=== PATIENT | male | born 1995 | race American Indian/Alaskan Native ===

== ENCOUNTER 2017-09-06 21:35 | Inpatient (IN) | payer BC, OTHER ==
[2017-09-06] MEDS ORDERED: TDAP Vaccine 0.5 mL Syr IM ONE (22:04)
[2017-09-06] MEDS ORDERED: Sodium Chloride 0.9% 1,000 ML IV STA (22:04)
--- NOTE | 2017-09-06 22:09 | ED PDOC ---
Arrival/HPI - General Chief Complaint: Medical Clearance Time Seen by Provider: 09/06/17 21:54 Historian: Patient, Parent, EMS - History of Present Illness Narrative History of Present Illness (Text): 09/06/17 22:06 22 y/o male, no pmh, nkda, biba for syncope episode at a store x 2 hours. Pt. stated that he went to the store to get food for himself, last meal about 9 hours ago with a bowl of cereal, stated that he felt dizzy and syncoped on the floor which he was bring here with the ambulance, no head or neck pain, no back pain, no abdominal or chest pain, no palpitation, no rash, no night sweat, no dizziness, no change in vision, no other medical or psychological complaints. Past Medical History - Provider Review Nursing Documentation Reviewed: Yes - Past History Past History: No Previous - Infectious Disease Hx of Infectious Diseases: None - Psychiatric Hx Substance Use: No - Past Surgical History Past Surgical History: No Previous - Anesthesia Hx Anesthesia: No Family/Social History - Physician Review Nursing Documentation Reviewed: Yes Family/Social History: Unknown Family HX Smoking Status: Never Smoked Hx Alcohol Use: No Hx Substance Use: No Allergies/Home Meds Allergies/Adverse Reactions: Allergies No Known Allergies Allergy (Verified 12/22/12 21:27) Home Medications: Home Meds Medication Instructions Recorded Confirmed No Known Home Med 12/22/12 09/06/17 Review of Systems - Review of Systems Constitutional: absent: Fatigue, Fevers Eyes: absent: Vision Changes, Photophobia ENT: absent: Hearing Changes Respiratory: absent: SOB, Cough Cardiovascular: Syncope. absent: Chest Pain Gastrointestinal: absent: Abdominal Pain, Nausea, Vomiting Skin: absent: Rash, Pruritis Neurological: absent: Headache, Gait Changes, Facial Droop Psychiatric: absent: Anxiety, Depression Physical Exam Vital Signs Temp Pulse Resp BP Pulse Ox 09/07/17 03:11 99 H 20 141/70 99 09/07/17 02:12 111 H 30 H 149/100 H 94 L 09/07/17 01:00 87 18 145/71 100 09/06/17 23:35 80 18 158/72 H 100 09/06/17 21:35 98.2 F 84 18 135/65 100 Finger Stick Blood Glucose: 161 - Systems Exam Head: Present: Atraumatic, Normocephalic. No: Tenderness, Contusion, Swelling, Ecchymosis, Abrasion, Laceration, Other Pupils: Present: PERRL Extroacular Muscles: Present: EOMI Conjunctiva: Present: Normal Mouth: Present: Moist Mucous Membranes Nose (External): Present: Atraumatic. No: Abrasion, Contusion, Laceration, Lesions, Other Nose (Internal): Present: Normal Inspection, No Active Bleeding. No: Rhinorrhea , Septal Hematoma, Epistaxis Neck: Present: Normal Range of Motion, Lymphadenopathy. No: Meningeal Signs, MIDLINE TENDERNESS, Paraspinal Tenderness, Trachea Midline Respiratory/Chest: Present: Clear to Auscultation, Good Air Exchange. No: Respiratory Distress, Accessory Muscle Use Cardiovascular: Present: Regular Rate and Rhythm, Normal S1, S2. No: Murmurs Abdomen: Present: Normal Bowel Sounds. No: Tenderness, Distention, Peritoneal Signs Back: Present: Normal Inspection. No: CVA Tenderness, Midline Tenderness, Paraspinal Tenderness, Pain with Leg Raise, Decubitus Ulcer Upper Extremity: Present: Normal Inspection, Other (Lt. hand: visible dorsum abrasion approx. 2cm noted on the 2nd and 3rd MCPJ dorsum, no deformity, FROM without limitation, sensation intact, motor 5/5, +radial pulse, capillary refill < 2 seconds, neurovascular intact. ). No: Cyanosis, Edema Lower Extremity: Present: Normal Inspection. No: Edema Neurological: Present: GCS=15, CN II-XII Intact, Speech Normal, Motor Func Grossly Intact, Gait Normal, Memory Normal Skin: Present: Warm, Dry, Normal Color. No: Rashes Psychiatric: Present: Alert, Oriented x 3, Normal Insight, Normal Concentration Medical Decision Making ED Course and Treatment: 09/06/17 22:11 -labs/ua/uds/cardiac enzyme/drug screen -ekg -CT head -cxr -IVF -electronic device monitor -tdap -wound irrigated with normal saline, clean with betadine, bacitracin and gauze dressing -Observe and reassess 09/07/17 01:43 -EKG: NSR @ 84 BPM, no ST elevation or depression, no T wave inversion. -CT head results reviewed with no acute intracranial process. I explained the entire result with the patient and advised outpatient MRI follow up. -Chest xray no active diasease -Lt. hand xray show no acute fracture/dislocation -Labs show no acute findings except dimer is about 4000s which he has no extremity pain, will need to rule out PE as it may be cause of the syncope. -CTA show no obvious PE but can not be ensure of the peripheral PE, limited study, clinical concerning for elevation Dimer is very concerning, discussed with the family and Dr. Viveros, agreed to admit the patient for observation tele unit with lovenox 1mg/kg for the patient and V/Q scan tomorrow. -Pt. refused rectal examination and stated that he has no black stool or abdominal pain. -Case discussed with Dr. Viveros and he request me to put in the admission. -Case discussed with Dr. Davidson as the patient stated that he has no PMD, discussed about the labs/radiology study and treatment plan, she request DR. Salguero for routine consult. 09/07/17 02:10 -Pt. just had a seizure episode on the bed side, tonic clonic with no incontinence, evaluated by Dr. Viveros, ativan 2mg and keppra 1000mg ordered as this is new on set. 09/07/17 02:19 -I spoke to DR. Davidson, discussed about the updated situation and request Dr. Amilcar Jaramillo on this case as well for routine consult. -Seizure precaution and aspiration precaution ordered. - Lab Interpretations Microbiology Results: Microbiology Results 09/07/17 01:18 Urine Urine Culture - Preliminary Gram Positive Cocci Lab Results: 09/06/17 22:29 09/06/17 22:29 Lab Results 09/07/17 07:47: POC Glucose (mg/dL) 90 09/07/17 01:18: Urine Color Yellow, Urine Appearance Clear, Urine pH 7.0, Ur Specific [place] 1.010, Urine Protein Negative, Urine Glucose (UA) Negative, Urine Ketones Trace H, Urine Blood Negative, Urine Nitrate Negative, Urine Bilirubin Negative, Urine Urobilinogen 0.2, Ur Leukocyte Esterase Negative 09/07/17 01:18: Urine Opiates Screen Negative, Urine Methadone Screen Negative, Ur Barbiturates Screen Negative, Ur Phencyclidine Scrn Negative, Ur Amphetamines Screen Negative, U Benzodiazepines Scrn Negative, U Oth Cocaine Metabols Negative, U Cannabinoids Screen Negative 09/07/17 00:25: PT 13.8 H, INR 1.21 H, APTT 32.7 09/07/17 00:25: D-Dimer, Quantitative 5159 H 09/06/17 22:53: D-Dimer, Quantitative 4215 H 09/06/17 22:29: Influenza Typ A,B (EIA) Negative for flu a/b 09/06/17 22:29: Alcohol, Quantitative < 10 09/06/17 22:29: Salicylates < 1 L, Acetaminophen < 10.0 L 09/06/17 22:29: Sodium 144, Potassium 3.9, Chloride 105, Carbon Dioxide 26, Anion Gap 17, BUN 13, Creatinine 0.9, Est GFR ( Amer) > 60, Est GFR (Non- Af Amer) > 60, Random Glucose 104, Calcium 9.9, Magnesium 2.1, Total Bilirubin 0.8, AST 44, ALT 32, Alkaline Phosphatase 72, Lactate Dehydrogenase 579, Total Creatine Kinase 504 H, CK-MB (CK-2) 2.3, CK-MB (CK-2) % Cancelled, Troponin I < 0.01, Total Protein 8.0, Albumin 4.5, Globulin 3.5, Albumin/Globulin Ratio 1.3 09/06/17 22:29: WBC 5.6, RBC 4.63, Hgb 13.8 L, Hct 40.9 L, MCV 88.3, MCH 29.8, MCHC 33.7, RDW 12.7, Plt Count 198, MPV 9.6, Gran % 56.6, Lymph % (Auto) 34.0, [place] % (Auto) 6.2 H, Eos % (Auto) 3.0, Baso % (Auto) 0.2, Gran # 3.19, Lymph # ( Auto) 1.9, [place] # (Auto) 0.4, Eos # (Auto) 0.2, Baso # (Auto) 0.01 09/06/17 22:20: POC Glucose (mg/dL) 97 - RAD Interpretation Radiology Orders: 09/06/17 22:04 HEAD W/O CONTRAST [CT] Stat CHEST PORTABLE [RAD] Stat HAND LEFT 3 VIEWS ROUTINE [RAD] Stat 09/06/17 23:55 ANGIO CHEST PE PROTOCOL [CT] Stat 09/07/17 09:27 BRAIN W & WO CONTRAST [MRI] Stat 09/07/17 09:45 HUMERUS LEFT [RAD] Stat HUMERUS RIGHT [RAD] Stat SHOULDER LEFT [RAD] Stat SHOULDER RIGHT [RAD] Stat 09/07/17 16:27 EXT UPPER W/O CONTRAST LEFT [CT] Stat Chest xray: no active disease Lt. hand xray: normal left hand radiograph CT Head: FINDINGS: Brain: The white-peterson differentiation is preserved demonstrating no acute territorial type infarct. No acute intracranial hemorrhage is seen. There is a small focus of hypodensity within the superior right frontal white matter, which is nonspecific in a patient this age. When correlated with the reconstructed images, this is suggestive of artifact. Midline shift: There is no midline shift. Ventricles: No ventriculomegaly. Bones/joints: The calvarium demonstrates no evidence for a depressed fracture. Soft tissues: No acute abnormality. Sinuses: Unremarkable as visualized. No acute sinusitis. Mastoid air cells: No mastoid effusion. IMPRESSION: 1. No acute intracranial abnormality. 2. Additional findings described above. Thank you for allowing us to participate in the care of your patient. Dictated and Authenticated by: Teofilo Gregg MD 09/07/2017 1:13 AM Eastern Time ([place] & [place]) CTA: Business Office Coordinator: Radiologist - EKG Interpretation EKG Interpretation (Text): 09/06/17 22:49 -EKG: NSR @ 84 BPM, no ST elevation or depression, no T wave inversion. Interpreted by ED Physician: Yes Type: 12 lead EKG - Medication Orders Current Medication Orders: Acetaminophen (Tylenol 325mg Tab) 650 mg PO Q6H PRN PRN Reason: Pain, Mild (1-3) Last Admin: 09/07/17 16:49 Dose: 650 mg MAR Pain/Vitals Document 09/07/17 16:49 DH (Rec: 09/07/17 16:50 DH [id number]) Presence of Pain Presence of Pain Yes Famotidine (Pepcid) 40 mg PO HS [facility] Last Admin: 09/07/17 21:43 Dose: 40 mg Hydromorphone HCl (Dilaudid) 0.5 mg IVP Q4H PRN PRN Reason: Pain, Mild (1-3) Sodium Chloride (Sodium Chloride 0.9%) 1,000 mls @ 100 mls/hr IV .Q10H [facility] Last Admin: 09/08/17 05:50 Dose: 100 mls/hr eMAR Start Stop Document 09/08/17 05:50 ZARAL (Rec: 09/08/17 05:51 ZARAL [id number]) Intravenous Solution Start Date 09/08/17 Start Time 05:50 Levetiracetam (Keppra 500mg Ivpb) 500 mg in 100 mls @ 400 mls/hr IVPB Q12 [facility] Last Admin: 09/08/17 09:52 Dose: 400 mls/hr eMAR Start Stop Document 09/08/17 09:52 RICHARD (Rec: 09/08/17 09:52 RICHARD [id number]) Intravenous Solution Start Date 09/08/17 Start Time 09:52 End Date 09/08/17 End time 10:10 Total Infusion Time 18 Lidocaine (Lidoderm) 1 ea TD DAILY [facility] Last Admin: 09/08/17 09:53 Dose: 1 ea MAR Transdermal Patch Site Document 09/08/17 09:53 RICHARD (Rec: 09/08/17 09:53 RICHARD [id number]) Transdermal Patch Site Transdermal Patch Site Left Shoulder Lorazepam (Ativan) 1 mg IVP Q4H PRN; Protocol PRN Reason: Seizure activity Oxycodone/Acetaminophen (Percocet 5/325 Mg Tab) 1 tab PO Q6H PRN PRN Reason: Pain, moderate (4-7) Stop: 09/10/17 18:24 Last Admin: 09/08/17 09:50 Dose: 1 tab [facility] Pain Assessment Document 09/08/17 09:50 [facility] (Rec: 09/08/17 09:51 [id number] Pain Reassessment Is this a pain reassessment? No Sleep Is patient sleeping during reassessment? No Presence of Pain Presence of Pain Yes Pain Scale Used Pain Scale Used Numeric Location Pain Location Body Site Generalized Description Description Intermittent Intensity of Pain at present 6 Re-Assess: [facility] Pain Assessment Document 09/08/17 10:50 [facility] (Rec: 09/08/17 14:05 [id number] Pain Reassessment Is this a pain reassessment? Yes Sleep Is patient sleeping during reassessment? No Presence of Pain Presence of Pain No Discontinued Medications Acetaminophen (Tylenol 325mg Tab) 650 mg PO STAT STA Stop: 09/07/17 03:51 Last Admin: 09/07/17 04:10 Dose: 650 mg [facility] Pain/Vitals Document 09/07/17 04:10 MS (Rec: 09/07/17 04:[address] [facility] [id number]) Pain Reassessment Is This A Pain ReAssessment? No Presence of Pain Presence of Pain Yes Pain Scale Used Pain Scale Used Numeric Location Pain Location Body Day Care Worker Description Pressure Intensity 4 Scale Used Numeric Alleviating Factors Medication Re-Assess: [facility] Pain/Vitals Document 09/07/17 05:10 MS (Rec: 09/07/17 05:[address] [facility] [id number]) Pain Reassessment Is This A Pain ReAssessment? Yes Sleep Is patient sleeping during reassessment? Yes Enoxaparin Sodium (Lovenox) 70 mg SC STAT STA PRN Reason: Protocol Stop: 09/07/17 01:43 Last Admin: 09/07/17 02:17 Dose: 70 mg Subcutaneous Administrations Document 09/07/17 02:17 JOL (Rec: 09/07/17 02:17 JOL [id number]) Charges for Administration # of Subcutaneous Administrations 1 Sodium Chloride (Sodium Chloride 0.9%) 1,000 mls @ 999 mls/hr IV .Q1H1M STA Stop: 09/06/17 23:04 Last Admin: 09/06/17 22:31 Dose: 999 mls/hr eMAR Start Stop Document 09/06/17 22:31 JOL (Rec: 09/06/17 22:32 JOL [id number]) Intravenous Solution Start Date 09/06/17 Start Time 22:32 End Date 09/06/17 End time 23:33 Total Infusion Time 61 Levetiracetam 1,000 mg/ Sodium (Chloride) 110 mls @ 440 mls/hr IV ONCE ONE Stop: 09/07/17 02:23 Last Admin: 09/07/17 02:25 Dose: 440 mls/hr eMAR Start Stop Document 09/07/17 02:25 JOL (Rec: 09/07/17 02:25 JOL [id number]) Intravenous Solution Start Date 09/07/17 Start Time 02:25 End Date 09/07/17 End time 02:40 Total Infusion Time 15 Lorazepam (Ativan) 2 mg IM ONCE ONE PRN Reason: Protocol Stop: 09/07/17 02:10 Last Admin: 09/07/17 02:10 Dose: 2 mg IM Administration Charges Document 09/07/17 02:10 JOL (Rec: 09/07/17 02:26 JOL [id number]) Charges for Administration # of IM Administrations 1 Lorazepam (Ativan) 2 mg IVP ONCE PRN; Protocol PRN Reason: Seizure activity Stop: 09/07/17 23:59 Last Admin: 09/07/17 09:50 Dose: 2 mg IVP Administration Document 09/07/17 09:50 (Rec: 09/07/17 09:50 [email or web address]) Charges for Administration # of IVP Administrations 1 Behavioural Document 09/07/17 09:50 DH (Rec: 09/07/17 09:50 [email or web address]) Maintenance Maintenance Dose Yes Re-Assess: Reassess Psych Meds Document 09/07/17 10:20 DH (Rec: 09/07/17 14:39 DH [email or web address]) Reassess Psych Med Effective Tetanus/Reduced Diphtheria/Acell Pertussis (Boostrix Vaccine Inj) 0.5 ml IM .ONCE ONE Stop: 09/06/17 22:05 Last Admin: 09/06/17 22:30 Dose: 0.5 ml Immunization Registry Document 09/06/17 22:30 JOL (Rec: 09/06/17 22:31 JOL [id number]) Immunization Registry Consent Date 06/10/17 - PA / [employer] / Resident Statement MD/DO has reviewed & agrees with the documentation as recorded. Disposition/Present on Arrival - Present on Arrival Any Indicators Present on Arrival: No History of DVT/PE: No History of Uncontrolled Diabetes: No Urinary Catheter: No History of Decub. Ulcer: No History Surgical Site Infection Following: None - Disposition Have Diagnosis and Disposition been Completed?: Yes Diagnosis: Syncope, Elevated d-dimer, Seizure Disposition: HOSPITALIZED Disposition Time: 01:45 Patient Plan: Admission, Telemetry Patient Problems: Current Active Problems Problem Status Onset Syncope Acute Elevated d-dimer Acute Seizure Acute Condition: STABLE
[2017-09-06 22:41] LABS: BASO # 0.01 K/mm3 (0.0-2.0); BASO % 0.2 % (0.0-3.0); EOS # 0.2 (0.0-0.7); GRAN # 3.19 (1.4-6.5); GRAN % 56.6 % (50.0-68.0); HEMOGLOBIN 13.8 g/dL (14.0-18.0); LYMPH # 1.9 (1.2-3.4); MEAN CELL VOLUME 88.3 fl (80.0-105.0); MEAN CORPUSCULAR HEMOGLOBIN 29.8 pg (25.0-35.0); MEAN CORPUSCULAR HGB CONC 33.7 g/dl (31.0-37.0); MEAN PLATELET VOLUME 9.6 fl (7.0-11.0); MONO # 0.4 (0.1-0.6); MONO % 6.2 % (1.0-6.0); RBC 4.63 10^6/uL (3.5-6.1); RED CELL DISTRIBUTION WIDTH 12.7 % (11.5-14.5); WHITE BLOOD COUNT 5.6 10^3/ul (4.5-11.0)
[2017-09-06 22:43] LABS: ACETAMINOPHEN < 10.0 ug/ml (10.0-20.0); SALICYLATE < 1 mg/dL (2.0-20.0)
[2017-09-06 22:46] LABS: ALB/GLOB RATIO 1.3 (1.1-1.8); ALBUMIN 4.5 g/dL (3.0-4.8); ALT/SGPT 32 U/L (7-56); AST/SGOT 44 U/L (17-59); BLOOD UREA NITROGEN 13 mg/dL (7-21); CALCIUM 9.9 mg/dL (8.4-10.5); GFR AFRICAN-AMERICAN > 60; GFR NON-AFRICAN AMERICAN > 60; MAGNESIUM 2.1 mg/dL (1.7-2.2)
[2017-09-06 22:55] LABS: TROPONIN I < 0.01 ng/mL
[2017-09-06 23:00] LABS: CK-MB 2.3 ng/mL (0.0-3.6)
[2017-09-07] MEDS ORDERED: Iohexol 240 (50 ml) ONE (00:05)
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
--- NOTE | 2017-09-07 01:26 | CT ---
EXAM: CT Angiography Chest With Intravenous Contrast EXAM DATE/TIME: 09/06/2017 11:55 PM CLINICAL HISTORY: The patient age is 22 years old and is male; Abnormal findings; Abnormal diagnostic tests; Elevated d-dimer; Additional info: Elevated dimer, syncope, R/O pe Facility exam id and description: Ct [facility] angio chest pe protocol TECHNIQUE: Axial computed tomographic angiography images of the chest with intravenous contrast using pulmonary embolism protocol. All CT scans at this facility use one or more dose reduction techniques, viz.: automated exposure control; ma/kV adjustment per patient size (including targeted exams where dose is matched to indication; i.e. head); or iterative reconstruction technique. MIP reconstructed images were created and reviewed. Coronal and sagittal reformatted images were created and reviewed. CONTRAST: 96 mL of VISI 320 administered intravenously. COMPARISON: No relevant prior studies available. FINDINGS: Pulmonary arteries: There is no acute central pulmonary embolism within the pulmonary trunk or main pulmonary arteries. Artifact limits evaluation for pulmonary embolism within the proximal lobar and segmental branches within the right lung and additional segmental branches in the left lung. Aorta: No acute findings. No thoracic aortic aneurysm. Lungs: No lung mass or dominant lung nodule is visualized. There is no confluent infiltrate. Pleural space: No significant effusion. No pneumothorax. Heart: No cardiomegaly. No significant pericardial effusion. No evidence of RV dysfunction. Mediastinum: There is soft tissue within the anterior mediastinum, compatible with thymic tissue. Bones/joints: No acute fracture. No dislocation. Soft tissues: There is mild bilateral gynecomastia. Lymph nodes: No enlarged lymph nodes. Kidneys and ureters: Right renal pelviectasis is visualized. IMPRESSION: 1. There is no acute central pulmonary embolism. Artifact limits evaluation for pulmonary embolism within the proximal lobar and segmental branches within the right lung and additional segmental branches in the left lung. 2. There is no confluent infiltrate. 3. Right renal pelviectasis is visualized. 4. Additional CT findings described above.
[2017-09-07] MEDS ORDERED: Enoxaparin 80 mg Syringe SC STA (01:42)
[2017-09-07 01:48] LABS: URINE BILIRUBIN NEGATIVE (NEGATIVE); URINE BLOOD NEGATIVE (NEGATIVE); URINE GLUCOSE (UA) NEGATIVE (NEGATIVE); URINE LEUKOCYTE ESTERASE NEGATIVE Leu/uL (NEGATIVE); URINE NITRATE NEGATIVE (NEGATIVE); URINE PROTEIN NEGATIVE mg/dL (<30 mg/dL); URINE UROBILINOGEN 0.2 E.U./dL (<1 E.U./dL)
[2017-09-07 01:59] LABS: URINE APPEARANCE CLEAR (CLEAR); URINE COLOR YELLOW (YELLOW)
[2017-09-07 02:05] LABS: INR 1.21 (0.93-1.08); PARTIAL THROMBOPLASTIN TIME 32.7 Seconds (25.1-36.5); PROTHROMBIN TIME 13.8 SECONDS (9.4-12.5)
[2017-09-07 02:08] LABS: BARBITURATES, UR NEGATIVE (NEGATIVE); BENZODIAZEPINES, UR NEGATIVE (NEGATIVE); OPIATES, UR NEGATIVE (NEGATIVE); PHENCYCLIDINE, UR NEGATIVE (NEGATIVE)
[2017-09-07] MEDS ORDERED: levETIRAcetam 1,000 MG in Sodium Chloride 0.9% 100 ML IV ONE (02:09)
[2017-09-07] MEDS: Sodium Chloride 0.9% 1,000 ML IV SCH ×2 (02:17→14:40)
[2017-09-07 04:07] VITALS: BMI 23.2
[2017-09-07] MEDS: levETIRAcetam 500mg IVPB 500 MG/100 ML BAG IVPB SCH ×2 (09:40→21:01)
--- NOTE | 2017-09-07 10:26 | CP.PCM.CON ---
<Mihaela Martino - Last Filed: 09/07/17 10:45> History of Present Illness - History of Present Illness History of Present Illness: PGY-[address] Gomez Neurology consult: Seizure Mr Romeo Crawford, 22M, had 2 seizure episodes: 1 unwitnessed happened at a store; 1 witnessed in the ED. Pt stated that he went to the store to get food for himself, last meal about 9 hours ago with a bowl of cereal, collapsed on the floor with no prior dizziness, aura, tinnitus. The 2nd episode was witnessed in the ED. Pt's eyes rolled back with muscle shaking of extremities. After given ativan, pt was postictal for 15 minutes. ROS - (+) eat 1 meal a day for some days or a week. (+) Sleep from 8pm to 2am and cannot fall asleep. (+) shoulder pain b/1. No stress. Denies recent sickness, childhood trauma/recent trauma/head injury no head or neck pain, no back pain, no abdominal or chest pain, no palpitation, no rash, no night sweat, no dizziness, no change in vision, no other medical or psychological complaints. PMH: None PSH: None FH: Father has seizure after head injury in teenagers. Paternal uncle has seizure when he was young SH: Live with dad. 1-2 cigarettes a day. Last smoke marijuana 2 weeks ago. Denies drink/drug All: NKDA Med: none Past Patient History - Infectious Disease Hx of Infectious Diseases: None - Past Social History Smoking Status: Current Some Days Smoker - CARDIAC Hx Cardiac Disorders: No - PULMONARY Hx Respiratory Disorders: No - NEUROLOGICAL Hx Neurological Disorder: No - HEENT Hx HEENT Problems: No - ENDOCRINE/METABOLIC Hx Endocrine Disorders: No - HEMATOLOGICAL/ONCOLOGICAL Hx Blood Disorders: No - INTEGUMENTARY Hx Dermatological Problems: No - MUSCULOSKELETAL/RHEUMATOLOGICAL Hx Musculoskeletal Disorders: No Hx Falls: Yes - GASTROINTESTINAL Hx Gastrointestinal Disorders: No - GENITOURINARY/GYNECOLOGICAL Hx Genitourinary Disorders: No - PSYCHIATRIC Hx Psychophysiologic Disorder: No Hx Substance Use: No - SURGICAL HISTORY Hx Surgeries: No - ANESTHESIA Hx Anesthesia: No Meds Allergies/Adverse Reactions: Allergies Allergy/AdvReac Type Severity Reaction Status Date / Time No Known Allergies Allergy Verified 12/22/12 21:27 - Medications Medications: Current Medications Acetaminophen (Tylenol 325mg Tab) 650 mg PO Q6H PRN PRN Reason: Pain, Mild (1-3) Last Admin: 09/07/17 09:50 Dose: 650 mg Sodium Chloride (Sodium Chloride 0.9%) 1,000 mls @ 100 mls/hr IV .Q10H ZACK Last Admin: 09/07/17 02:17 Dose: 100 mls/hr Levetiracetam (Keppra 500mg Ivpb) 500 mg in 100 mls @ 400 mls/hr IVPB Q12 ZACK Last Admin: 09/07/17 09:40 Dose: 400 mls/hr Lorazepam (Ativan) 2 mg IVP ONCE PRN; Protocol PRN Reason: Seizure activity Stop: 09/07/17 23:59 Last Admin: 09/07/17 09:50 Dose: 2 mg Lorazepam (Ativan) 1 mg IVP Q4H PRN; Protocol PRN Reason: Seizure activity Physical Exam - Constitutional Appears: No Acute Distress - Head Exam Head Exam: ATRAUMATIC, NORMAL INSPECTION, NORMOCEPHALIC Additional comments: R lower Lip biting injury - Eye Exam Eye Exam: EOMI, Normal appearance, PERRL Pupil Exam: NORMAL ACCOMODATION - ENT Exam ENT Exam: Mucous Membranes Moist - Neck Exam Additional comments: supple - Respiratory Exam Respiratory Exam: Clear to Auscultation Bilateral, NORMAL BREATHING PATTERN. absent: Rales, Rhonchi, Wheezes - Cardiovascular Exam Cardiovascular Exam: REGULAR RHYTHM, +S1, +S2 - GI/Abdominal Exam GI & Abdominal Exam: Normal Bowel Sounds, Soft. absent: Tenderness - Extremities Exam Extremities exam: Positive for: pedal pulses present. Negative for: calf tenderness Additional comments: Upper extremiteis range of motion limited by pain. Most tenderness at proximal humerus areas b/l - Neurological Exam Neurological exam: Alert, CN II-XII Intact, Oriented x3, Reflexes Normal Additional comments: Speech: No aphasia Recall: 2/3 Motor: Upper extremiteis range of motion limited by pain. Good hand cell maker. LE 5/ 5 b/l Sensory: intact [id number] coordination: intact rapid alternating movement: intact - Psychiatric Exam Psychiatric exam: Normal Affect, Normal Mood - Skin Skin Exam: Warm (clammy) Results - Vital Signs Recent Vital Signs: Last Vital Signs Temp 98.9 F 09/07/17 06:00 Pulse 89 02/08/18 06:00 Resp 20 09/07/17 06:00 BP 134/98 H 09/07/17 06:00 Pulse Ox 97 09/07/17 06:00 - Labs Result Diagrams: 09/06/17 22:29 09/06/17 22:29 Labs: Laboratory Results - last 24 hr 09/07/17 07:47 POC Glucose (mg/dL) 90 Assessment & Plan - Assessment and Plan (Free Text) Plan: Mr Romeo Crawford, 22M, had 2 seizure episodes: 1 unwitnessed happened at a store; 1 witnessed in the ED - tonic clonic in nature. ROS is significant for (+) irregular eating habit with skipped meals, (+) poor sleep hygiene with sleep depravation, and (+) shoulder pain b/l after seizures. UDS and blood alcohol level is negative. CK is elevated at 500. EKG showed NSR @ 84 BPM, no ST elevation or depression, no T wave inversion. CT head showed no acute intracranial process. There is a small focus of hypodensity within the superior right frontal white matter. Seizure likely triggered by sleep deprivation compound with irregular and skipped meals - Keppra 500 BID - MRI w/w/o contrast of brain with NS @ 100 - EEG - seizure precaution - Ativan 1q4 PRN for seizure shoulder pain b/l after seizures - tylenol PRN for pain - ___Pending___shoulder and humerus x-ray b/l to r/o fracture s/r/d/w Dr. Gomez <Chaz Gomez - Last Filed: 09/07/17 11:43> Meds - Medications Medications: Current Medications Acetaminophen (Tylenol 325mg Tab) 650 mg PO Q6H PRN PRN Reason: Pain, Mild (1-3) Last Admin: 09/07/17 09:50 Dose: 650 mg Sodium Chloride (Sodium Chloride 0.9%) 1,000 mls @ 100 mls/hr IV .Q10H ZACK Last Admin: 09/07/17 02:17 Dose: 100 mls/hr Levetiracetam (Keppra 500mg Ivpb) 500 mg in 100 mls @ 400 mls/hr IVPB Q12 ZACK Last Admin: 09/07/17 09:40 Dose: 400 mls/hr Lorazepam (Ativan) 2 mg IVP ONCE PRN; Protocol PRN Reason: Seizure activity Stop: 09/07/17 23:59 Last Admin: 09/07/17 09:50 Dose: 2 mg Lorazepam (Ativan) 1 mg IVP Q4H PRN; Protocol PRN Reason: Seizure activity Results - Vital Signs Recent Vital Signs: Last Vital Signs Temp 98.9 F 09/07/17 06:00 Pulse 89 09/07/17 06:00 Resp 20 09/07/17 06:00 BP 134/98 H 09/07/17 06:00 Pulse Ox 97 09/07/17 06:00 - Labs Result Diagrams: 09/06/17 22:29 09/06/17 22:29 Labs: Laboratory Results - last 24 hr 09/07/17 07:47 POC Glucose (mg/dL) 90 Attending/Attestation - Attestation I have personally seen and examined this patient.: Yes I have fully participated in the care of the patient.: Yes I have reviewed all pertinent clinical information: Yes
[2017-09-07] MEDS ORDERED: Gadodiamide 287 MG/ML VIAL (15ML) IV ONE (11:16)
--- NOTE | 2017-09-07 12:50 | MRI ---
PROCEDURE: MRI BRAIN WITH AND WITHOUT CONTRAST HISTORY: Seizure COMPARISON: None. TECHNIQUE: Multiplanar, multisequence MR images of the brain were obtained with and without intravenous contrast enhancement. 15 cc of Omniscan There is some motion artifact on several of the pulse sequences. FINDINGS: HEMORRHAGE: None DWI: No evidence of an acute or early subacute infarction. BRAIN PARENCHYMA: No mass,mass effect or edema. No atrophy or chronic microvascular ischemic changes. ENHANCEMENT: No abnormal intracranial enhancement. VENTRICLES: Unremarkable. No hydrocephalus. CRANIUM: Unremarkable. ORBITS: Grossly unremarkable. PARANASAL SINUSES/MASTOIDS: Clear VASCULAR SYSTEM: Skull base flow voids intact. OTHER FINDINGS: None . IMPRESSION: Unremarkable pre and post contrast enhanced MRI of the brain.
--- NOTE | 2017-09-07 14:19 | RAD ---
HISTORY: medical clearance COMPARISON: No prior. FINDINGS: LUNGS: No active pulmonary disease. PLEURA: No significant pleural effusion identified, no pneumothorax apparent. CARDIOVASCULAR: Normal. OSSEOUS STRUCTURES: No significant abnormalities. VISUALIZED UPPER ABDOMEN: Normal. OTHER FINDINGS: None. IMPRESSION: No active disease.
--- NOTE | 2017-09-07 14:46 | RAD ---
PROCEDURE: Left Hand Radiographs. HISTORY: lt. hand dorsum abrasion COMPARISON: None. FINDINGS: BONES: Normal. No fracture. JOINTS: Normal. No osteoarthritic changes. SOFT TISSUES: Normal. OTHER FINDINGS: None. IMPRESSION: Normal left hand radiographs.
[2017-09-07] MEDS: Lidocaine 5% Patch TD SCH (15:23)
--- NOTE | 2017-09-07 15:26 | RAD ---
PROCEDURE: Radiographs of the left humerus. HISTORY: pain COMPARISON: None. FINDINGS: BONES: There is a displaced fracture involving the lateral aspect of the humeral head in the region of the greater tuberosity. The articular surface is intact. The humeral neck is intact SOFT TISSUES: Normal. OTHER FINDINGS: None. IMPRESSION: There is a displaced fracture involving the lateral aspect of the humeral head in the region of the greater tuberosity. The articular surface is intact. The humeral neck is intact
--- NOTE | 2017-09-07 15:27 | RAD ---
PROCEDURE: Radiographs of the Right Shoulder HISTORY: pain COMPARISON: No prior. FINDINGS: BONES: Normal. No fracture. JOINTS: Normal. Glenohumeral and acromioclavicular joints preserved. No osteoarthritis. SOFT TISSUES: Normal. OTHER FINDINGS: None. IMPRESSION: Normal radiographs of the right shoulder.
--- NOTE | 2017-09-07 15:27 | RAD ---
PROCEDURE: Radiographs of the Left Shoulder HISTORY: pain COMPARISON: No prior. FINDINGS: BONES: There is a displaced fracture involving the lateral aspect of the humeral head in the region of the greater tuberosity. The articular surface is intact. The humeral neck is intact JOINTS: Normal. Glenohumeral and acromioclavicular joints preserved. No osteoarthritis. SOFT TISSUES: Normal. OTHER FINDINGS: None. IMPRESSION: There is a displaced fracture involving the lateral aspect of the humeral head in the region of the greater tuberosity. The articular surface is intact. The humeral neck is intact
--- NOTE | 2017-09-07 15:29 | RAD ---
PROCEDURE: Radiographs of the right humerus. HISTORY: pain COMPARISON: None. FINDINGS: BONES: Normal. No fracture or focal lesion. SOFT TISSUES: Normal. OTHER FINDINGS: None. IMPRESSION: Normal radiographs of right humerus.
--- NOTE | 2017-09-07 18:12 | CARD ---
APPROVED REPORT EKG Measurement Heart [id number] <Conclusion> Normal sinus rhythm Normal ECG
[2017-09-07] MEDS: Oxycodone/Acetaminophen 5/325 mg Tab PO PRN (18:35)
--- NOTE | 2017-09-07 18:56 | CT ---
PROCEDURE: Left upper extremity CT scan HISTORY: left proximal humerus/shoulder fracture COMPARISON: September 07, 2017. Left shoulder radiographs TECHNIQUE: 2.5 mm axial acquisition and display. Coronal and sagittal reconstructions. Dose report (mGy-cm): FINDINGS: Comminuted fracture at the junction of the right humeral head and neck with avulsion of the greater tuberosity Preservation of the glenohumeral relationship. Unremarkable acromioclavicular joint. No abnormalities of the adjacent scapula, visualized ribs or clavicle. Large hematoma of encompassing deltoid and teres major muscles. Sub scapularis and infraspinatus muscles are also affected. Pectoralis muscle hematoma noted. The large hematoma extends into the axillary region and chest. Muscles are also affected. No underlying pulmonary abnormalities. No evidence of rib fracture identified. IMPRESSION: Comminuted fracture proximal left humerus including the neck of the humerus with avulsion of greater tuberosity. Large hematoma affecting multiple muscle groups, axilla and left chest wall.
[2017-09-07] MEDS ORDERED: HYDROmorphone 0.5 mg/0.5 ml ISec IVP PRN (21:05)
[2017-09-08] MEDS: Oxycodone/Acetaminophen 5/325 mg Tab PO PRN ×3 (01:38→19:51)
--- NOTE | 2017-09-08 03:35 | CON ---
DATE: 09/07/2017 REASON FOR CONSULTATION: Left shoulder fracture. HISTORY OF PRESENT ILLNESS: This is a 22-year-old gentleman, who was admitted earlier today with complaints of left shoulder pain. The patient sustained a seizure and subsequently fell. The patient does not have recollection of the episode. He states that he woke up in the emergency room. He says now he has pain with range of motion in the left shoulder. He denies any numbness or tingling in the upper extremities. On examination of the left shoulder, he has some mild swelling about the left shoulder. He has some tenderness along the lateral aspect of the proximal humerus and has pain with passive range of motion of the shoulder. He does have no gross crepitus around the humerus or the elbow. There is obvious elbow swelling. He is able to flex and extend the elbow with a little bit of pain at the shoulder. He is grossly stable at the elbow. He has no forearm or wrist tenderness. He is able to move his wrist and his hand without pain. Neurovascularly, he is grossly intact. X-rays of the left shoulder looks like a displaced left greater tuberosity fracture. No obvious dislocation is appreciated. IMPRESSION: Left proximal humerus fracture. PLAN: At this point, I recommend that we get a CAT to further evaluate the displacement of the fracture fragments. I did explain to him and his father that ultimately surgery may be warranted for this and may understand this as well. We will follow up with his admitting doctors to see what his current treatment for his new onset seizures will be. Franklin Moncada MD
[2017-09-08] MEDS: Sodium Chloride 0.9% 1,000 ML IV SCH (05:50)
--- NOTE | 2017-09-08 06:43 | CON ---
DATE: PULMONARY CONSULTATION REFERRING PHYSICIAN: Lynsey Davidson MD REASON FOR CONSULT: Questionable syncopal episode. The patient passed out, been having URI symptom for the last few days. HISTORY OF PRESENT ILLNESS: This is a 22-year-old gentleman without any significant past medical history while coming out of a store after buying some groceries, he was found on the floor, stand-by called 911. He was drove to the emergency room. According to the patient, he found himself in a ambulance, awakening in the ER. During the workup in the ER, he has a witness seizure, Ativan was given. He had a workup including CAT scan of the head and chest, also upper extremity CAT scan and was found to have humeral fracture. Presently, there is no nausea. No vomiting, diarrhea, leg pain, or leg swelling. PAST MEDICAL HISTORY: No significant cardiopulmonary disease. No seizure disorder. ALLERGIES: NONE KNOWN. SOCIAL HISTORY: No history of smoking or alcohol use. FAMILY HISTORY: No significant cardiopulmonary disease reported. MEDICATIONS: Presently, he is on Ativan 2 mg, was given in the ER and placed on Ativan 1 mg q. 4 hours p.r.n. for seizure, Dilaudid 0.5 mg q. 4 hours p.r.n., Keppra 500 mg IV q.12 hours, he has been given Lidoderm patch to the affected area, Pepcid 40 mg daily, Percocet 5/325 mg one tablet q. 6 hours p.r.n., IV normal saline 100 mL/hour, Tylenol on p.r.n. basis. REVIEW OF SYSTEMS: Presently, there is no headache, no rhinitis, no cough, no sputum production. Has upper extremity tenderness. No nausea. No vomiting, diarrhea, leg pain, or leg swelling. PHYSICAL EXAMINATION GENERAL: In no acute distress. VITAL SIGNS: Temperature is 98, heart rate is 92, respiratory rate is 18, blood pressure is 150/92, and pulse oximetry is 100% on room air. HEENT: Moist mucous membranes. Crowded airway. Mallampati score is 4. NECK: Supple. No JVD. LUNGS: Had a fair airflow. HEART: S1 and S2. ABDOMEN: Soft and nontender. No organomegaly. EXTREMITIES: No edema of the lower extremity. Left upper extremity has an ecchymotic area, tender to touch. NEUROLOGIC: Awake, alert and follow simple command. DATA: CAT scan of the left upper extremity shows comminuted fracture, proximal left humerus including the neck of the humerus with avulsion of greater tuberosity, large hematoma affecting multiple muscle groups, axilla and left chest wall. Otherwise, CTA of the chest was unremarkable for any PE. Head CAT scan is unremarkable. IMPRESSION AND PLAN: New onset of seizure, has left humeral fracture. D-dimer is probably high because of the broken humeral bleeding, status post urinary tract infection. Spoke to the patient on the bedside. All the questions answered. There may be component of sleep apnea syndrome. Also, had insomnia, I suspect circadian rhythm disorder. The patient was seen by neurologist, started on antiseizure medications. Keep head at 45 degrees. Sequential compression devices to lower extremities. Gastric prophylaxis. Orthopedic consult. Thank you and we will follow with you. German Salguero MD
--- NOTE | 2017-09-08 07:19 | HP ---
CHIEF COMPLAINT: Seizures. HISTORY OF PRESENT ILLNESS: Mr. Romeo Crawford is a 22-year-old male with no significant past medical history, came to the emergency room with episodes of seizure 2 hours ago before admission and patient stated that he went to the store to get food for himself, last meal was 9 hours ago with a bowl of cereal. He stated that he felt dizzy and has syncopal attack on the floor, which he was brought there with the ambulance. No head or neck pain. No hematuria or hematochezia. No abdominal pain. No chest pain. No fever. No chills. No palpitation. No rash. No sweating. No dizziness. No change of vision. No psychological complaints. PAST MEDICAL HISTORY: Nonsignificant. FAMILY HISTORY: Father and mother, noncontributory. I met with the patient's father; according to him, in his family, there is history of seizures. HABITS: Never smoked. No drugs, no ethanol. ALLERGIES: THE PATIENT IS NOT ALLERGIC WITH ANY MEDICATIONS. HOME MEDICATIONS: The patient is denying. REVIEW OF SYSTEMS: The patient is seen and examined on the bedside, looking comfortable. No nausea, vomiting, or diarrhea. No hematuria or hematochezia. No swelling of the leg. No chest pain, no palpitation. No headache or dizziness. No neck pain. No fever. No chills. PHYSICAL EXAMINATION: VITAL SIGNS: Temperature 98.2, pulse 84, respiratory rate 18, blood pressure 135/65, pulse oximetry is 100. HEENT: Head is normocephalic, atraumatic. Eyes, PERRLA. Extraocular muscles are intact. Conjunctivae are clear. Nose is patent. NECK: Supple. No carotid bruits. No JVD. No thyromegaly. CHEST: Bilaterally symmetrical. HEART: S1 and S2 positive. LUNGS: Clear to auscultation. ABDOMEN: Soft. Bowel sounds present. No organomegaly. EXTREMITIES: No edema. No cyanosis. NEUROLOGIC: The patient is awake and alert. Moving all 4 extremities. No focal deficits. LABORATORY DATA: White blood cells 5.6, hemoglobin 13.8, hematocrit 40.9, platelets 198. Sodium 144, potassium 3.9, BUN 13, creatinine 0.9, and glucose 104. ASSESSMENT AND PLAN: Mr. Romeo Crawford is a 22-year-old male with anemia who came with syncopal attack, passing out. As per the patient's father, he is working in [facility]; that in the ER, the patient had a seizure in father's presence. We admitted the patient. Patient went for upper extremity CT. It shows comminuted fracture proximal to left humerus including the neck of the humerus with avulsion of the greater tuberosity, large hematoma, affecting multiple muscle groups, axilla and left chest wall. We called orthopedic consult with Dr. Moncada. The patient is seen by Dr. Chaz Gomez for seizures. Had two seizure episodes, one unwitnessed that happened at store, second witnessed in ED in the presence of father, tonic-clonic in nature. According to father, patient has irregular eating habits with skipping meals, poor sleeping hygiene with sleep deprivation, and shoulder pain bilaterally after seizure. CK is elevated at 500. CT of head shows no acute intracranial process. There is a small focus of hypodensity with the superior right frontal white matter. Seizure likely triggered by sleep deprivation compared with irregular and skipped meals. Keppra started. MRI ordered. Patient should be on seizure precautions. Ativan ordered. Hand x-ray done also showed normal left hand radiograph. Chest x-ray reviewed by me , Dr. Roberts and no active disease. Brain MRI reviewed by me. Unremarkable pre and post contrast enhanced MRI of the brain. Shoulder both sides and humerus both sides x-ray was done, reviewed by me. Giving pain medication and seizure precautions. Gastrointestinal and deep venous thrombosis prophylaxis. Repeat labs. We will follow. Lynsey Davidson MD RAMIN
[2017-09-08 07:31] LABS: HEMOGLOBIN 10.6 g/dL (14.0-18.0); MEAN CELL VOLUME 88.4 fl (80.0-105.0); MEAN CORPUSCULAR HEMOGLOBIN 29.2 pg (25.0-35.0); MEAN PLATELET VOLUME 9.4 fl (7.0-11.0); RBC 3.63 10^6/uL (3.5-6.1); RED CELL DISTRIBUTION WIDTH 12.7 % (11.5-14.5); WHITE BLOOD COUNT 6.7 10^3/ul (4.5-11.0)
[2017-09-08 07:45] LABS: BLOOD UREA NITROGEN 4 mg/dL (7-21); CALCIUM 8.8 mg/dL (8.4-10.5); GFR AFRICAN-AMERICAN > 60; GFR NON-AFRICAN AMERICAN > 60; HDL CHOLESTEROL 50 mg/dL (29-60)
[2017-09-08 07:50] LABS: LDL CHOLESTEROL 55 mg/dL (0-129)
[2017-09-08] MEDS: levETIRAcetam 500mg IVPB 500 MG/100 ML BAG IVPB SCH ×2 (09:52→22:48)
[2017-09-08] MEDS: Lidocaine 5% Patch TD SCH (09:53)
--- NOTE | 2017-09-08 11:33 | CP.PCM.PN ---
<Mihaela Martino - Last Filed: 09/08/17 11:24> Subjective - Date & Time of Evaluation Date of Evaluation: 09/08/17 Time of Evaluation: 09:00 - Subjective Subjective: Neurolgy PGY-[address] Gomez No more seizure. pain controlled by pain meds. no other acute complaints Objective - Vital Signs/Intake and Output Vital Signs (last 24 hours): Temp Pulse Resp BP Pulse Ox 99.3 F 84 20 147/95 H 99 09/08/17 05:24 09/08/17 05:24 09/08/17 05:24 09/08/17 05:24 09/08/17 05:24 Intake and Output: 09/08/17 09/08/17 06:59 18:59 Intake Total 1920 Output Total 700 Balance 1220 - Medications Medications: Current Medications Acetaminophen (Tylenol 325mg Tab) 650 mg PO Q6H PRN PRN Reason: Pain, Mild (1-3) Last Admin: 09/07/17 16:49 Dose: 650 mg Famotidine (Pepcid) 40 mg PO HS [facility] Last Admin: 09/07/17 21:43 Dose: 40 mg Hydromorphone HCl (Dilaudid) 0.5 mg IVP Q4H PRN PRN Reason: Pain, Mild (1-3) Sodium Chloride (Sodium Chloride 0.9%) 1,000 mls @ 100 mls/hr IV .Q10H [facility] Last Admin: 09/08/17 05:50 Dose: 100 mls/hr Levetiracetam (Keppra 500mg Ivpb) 500 mg in 100 mls @ 400 mls/hr IVPB Q12 [facility] Last Admin: 09/08/17 09:52 Dose: 400 mls/hr Lidocaine (Lidoderm) 1 ea TD DAILY [facility] Last Admin: 09/08/17 09:53 Dose: 1 ea Lorazepam (Ativan) 1 mg IVP Q4H PRN; Protocol PRN Reason: Seizure activity Oxycodone/Acetaminophen (Percocet 5/325 Mg Tab) 1 tab PO Q6H PRN PRN Reason: Pain, moderate (4-7) Stop: 09/10/17 18:24 Last Admin: 09/08/17 09:50 Dose: 1 tab - Labs Labs: 09/08/17 07:00 09/08/17 07:00 PT 13.8 SECONDS (9.4-12.5) H 09/07/17 00:25 INR 1.21 (0.93-1.08) H 09/07/17 00:25 APTT 32.7 Seconds (25.1-36.5) 09/07/17 00:25 - Constitutional Appears: No Acute Distress - Head Exam Head Exam: ATRAUMATIC, NORMAL INSPECTION, NORMOCEPHALIC - Eye Exam Eye Exam: EOMI, Normal appearance, PERRL. absent: Scleral icterus Pupil Exam: NORMAL ACCOMODATION - ENT Exam ENT Exam: Mucous Membranes Moist - Neck Exam Additional comments: supple - Respiratory Exam Respiratory Exam: Clear to Ausculation Bilateral, NORMAL BREATHING PATTERN - Cardiovascular Exam Cardiovascular Exam: REGULAR RHYTHM, +S1, +S2. absent: Murmur - GI/Abdominal Exam GI & Abdominal Exam: Soft, Normal Bowel Sounds. absent: Tenderness - Neurological Exam Neurological Exam: Alert, Awake, CN II-XII Intact, Oriented x3 Additional comments: Speech: No aphasia Motor: L Upper extremity range of motion limited by pain. Good hand department sales manager. LE 5/ 5 b/l Sensory: intact [id number] coordination: intact rapid alternating movement: intact - Psychiatric Exam Psychiatric exam: Normal Affect, Normal Mood - Skin Skin Exam: Dry, Warm Assessment and Plan - Assessment and Plan (Free Text) Plan: Mr Romeo Crawford, 22M, had 2 seizure episodes: 1 unwitnessed happened at a store; 1 witnessed in the ED - tonic clonic in nature. ROS is significant for (+) irregular eating habit with skipped meals, (+) poor sleep hygiene with sleep depravation, and (+) shoulder pain b/l after seizures. UDS and blood alcohol level is negative. CK is elevated at 500. EKG showed NSR @ 84 BPM, no ST elevation or depression, no T wave inversion. CT head showed no acute intracranial process. There is a small focus of hypodensity within the superior right frontal white matter. Seizure likely triggered by sleep deprivation compound with irregular and skipped meals - Keppra 500 BID - MRI brain: negative - ___Pending___ EEG - seizure precaution - Ativan 1q4 PRN for seizure - counseled on sleep hygiene and balance meal/diet - no driving for at least 90 days; maintain on Keppra for 1-2 months - follow up with neurologist outpatient for another EEG and neurology clearance for driving Comminuted fracture proximal L humerus with avulsion of greater tuberosity shoulder pain b/l after seizures - tylenol PRN for pain - Orthopedic surgeon on board, pending ORIF s/r/d/w Dr. Gomez <JasonChaz - Last Filed: 09/08/17 11:46> Objective - Vital Signs/Intake and Output Vital Signs (last 24 hours): Temp Pulse Resp BP Pulse Ox 99.3 F 84 20 147/95 H 99 09/08/17 05:24 09/08/17 05:24 09/08/17 05:24 09/08/17 05:24 09/08/17 05:24 Intake and Output: 09/08/17 09/08/17 06:59 18:59 Intake Total 1920 Output Total 700 Balance 1220 - Medications Medications: Current Medications Acetaminophen (Tylenol 325mg Tab) 650 mg PO Q6H PRN PRN Reason: Pain, Mild (1-3) Last Admin: 09/07/17 16:49 Dose: 650 mg Famotidine (Pepcid) 40 mg PO HS [facility] Last Admin: 09/07/17 21:43 Dose: 40 mg Hydromorphone HCl (Dilaudid) 0.5 mg IVP Q4H PRN PRN Reason: Pain, Mild (1-3) Sodium Chloride (Sodium Chloride 0.9%) 1,000 mls @ 100 mls/hr IV .Q10H [facility] Last Admin: 09/08/17 05:50 Dose: 100 mls/hr Levetiracetam (Keppra 500mg Ivpb) 500 mg in 100 mls @ 400 mls/hr IVPB Q12 [facility] Last Admin: 09/08/17 09:52 Dose: 400 mls/hr Lidocaine (Lidoderm) 1 ea TD DAILY [facility] Last Admin: 09/08/17 09:53 Dose: 1 ea Lorazepam (Ativan) 1 mg IVP Q4H PRN; Protocol PRN Reason: Seizure activity Oxycodone/Acetaminophen (Percocet 5/325 Mg Tab) 1 tab PO Q6H PRN PRN Reason: Pain, moderate (4-7) Stop: 09/10/17 18:24 Last Admin: 02/09/18 09:50 Dose: 1 tab - Labs Labs: 09/08/17 07:00 09/08/17 07:00 PT 13.8 SECONDS (9.4-12.5) H 09/07/17 00:25 INR 1.21 (0.93-1.08) H 09/07/17 00:25 APTT 32.7 Seconds (25.1-36.5) 09/07/17 00:25 Attending/Attestation - Attestation I have personally seen and examined this patient.: Yes I have fully participated in the care of the patient.: Yes I have reviewed all pertinent clinical information, including history, physical exam and plan: Yes
--- NOTE | 2017-09-08 14:46 | CP.PCM.PN ---
Subjective - Date & Time of Evaluation Date of Evaluation: 09/08/17 Time of Evaluation: 14:37 - Subjective Subjective: Patient 22 y/o M s/p seizure with a left proximal humerus fracture. Patient laying comfortably in bed. Pain is controlled L shoulder: significant swelling. Skin is intact. No obvious deformity limited ROM with pain. Sensation intact to light touch NVI distally CT scan was reviewed showing a comminuted left proximal humerus fracture Planning for ORIF left proximal humerus in the upcoming week Discussed the results and plan with the patient and family Will get clearance from neurology prior to scheduling surgery Objective - Vital Signs/Intake and Output Vital Signs (last 24 hours): Temp Pulse Resp BP Pulse Ox 98.7 F 95 H 20 152/92 H 99 09/08/17 12:00 09/08/17 12:00 09/08/17 12:00 09/08/17 12:00 09/08/17 05:24 Intake and Output: 09/08/17 09/08/17 06:59 18:59 Intake Total 1920 Output Total 700 Balance 1220 - Medications Medications: Current Medications Acetaminophen (Tylenol 325mg Tab) 650 mg PO Q6H PRN PRN Reason: Pain, Mild (1-3) Last Admin: 09/07/17 16:49 Dose: 650 mg Famotidine (Pepcid) 40 mg PO HS [facility] Last Admin: 09/07/17 21:43 Dose: 40 mg Hydromorphone HCl (Dilaudid) 0.5 mg IVP Q4H PRN PRN Reason: Pain, Mild (1-3) Sodium Chloride (Sodium Chloride 0.9%) 1,000 mls @ 100 mls/hr IV .Q10H [facility] Last Admin: 09/08/17 05:50 Dose: 100 mls/hr Levetiracetam (Keppra 500mg Ivpb) 500 mg in 100 mls @ 400 mls/hr IVPB Q12 [facility] Last Admin: 09/08/17 09:52 Dose: 400 mls/hr Lidocaine (Lidoderm) 1 ea TD DAILY [facility] Last Admin: 09/08/17 09:53 Dose: 1 ea Lorazepam (Ativan) 1 mg IVP Q4H PRN; Protocol PRN Reason: Seizure activity Oxycodone/Acetaminophen (Percocet 5/325 Mg Tab) 1 tab PO Q6H PRN PRN Reason: Pain, moderate (4-7) Stop: 09/10/17 18:24 Last Admin: 09/08/17 09:50 Dose: 1 tab - Labs Labs: 09/08/17 07:00 09/08/17 07:00 PT 13.8 SECONDS (9.4-12.5) H 09/07/17 00:25 INR 1.21 (0.93-1.08) H 09/07/17 00:25 APTT 32.7 Seconds (25.1-36.5) 09/07/17 00:25
--- NOTE | 2017-09-08 23:39 | PN ---
DATE: 09/08/2017 PULMONARY PROGRESS NOTE REFERRING PHYSICIAN: Dr. Davidson. SUBJECTIVE: He is lying in the bed, head at 45 degrees. Mother and father is at bedside. Night was unremarkable. No more seizures since admission. No headache. No rhinitis. Has left shoulder pain. No nausea. No vomiting. No diarrhea. No leg pain or leg swelling. Admitted to have snoring, daytime sleepy and tired. OBJECTIVE: GENERAL: In no acute distress. VITAL SIGNS: Temperature is 98, heart rate is 83, respiratory rate is 20, blood pressure 141/89, pulse ox 98% on room air. HEENT: Moist mucous membrane. Crowded airway. NECK: Supple. No JVD. LUNGS: Have a fair airflow with rhonchi. HEART: S1 and S2. ABDOMEN: Soft, nontender. No organomegaly. EXTREMITIES: No edema. Left shoulder has tenderness. NEUROLOGICAL: Awake and alert. Follows simple command. MEDICATIONS: He is on Ativan 1 mg q. 4 hours p.r.n. for seizure, Dilaudid 0.5 mg q. 4 hours p.r.n., Keppra 500 mg twice a day, Pepcid 40 mg daily, Percocet 5/325 mg one tablet q. 6 hours p.r.n., IV fluid normal saline 100 mL/hour, Tylenol on p.r.n. basis. LABORATORY DATA: Shows hemoglobin 10.6, hematocrit 32.1, WBC of 6.7, platelet is 139. Sodium 140, potassium 3.5, chloride is 104, bicarbonate 26, BUN 4, creatinine 0.7, glucose 87, hemoglobin A1c 5.1, calcium is 8.8. Triglyceride is 60, cholesterol is 130. Urine is gram-positive cocci. IMPRESSION AND PLAN: New onset of seizure disorder, status post fall with left humeral fracture; urinary tract infection; may have sleep apnea syndrome. I spoke to the patient's mother and father at bedside. All their questions answered. I also spoke to the rn medical surgical. Once he is stable and cleared by Neurology, and stabilized on anti-seizure medications, patient could be scheduled for surgery. Pulmonary stand was stable. Just have to be careful with poor sedation and watch for sleep apnea syndrome. Thank you and we will follow with you. German Salguero MD [facility] # [id number]
[2017-09-09] MEDS: Sodium Chloride 0.9% 1,000 ML IV SCH (01:59)
--- NOTE | 2017-09-09 03:46 | PN ---
DATE: SUBJECTIVE: Patient is seen and examined at the bedside, sitting on the chair and mother was sitting on the bedside also. No nausea, vomiting, diarrhea. No hematuria, hematochezia. Having pain in the shoulder. No fever. No chills. No more seizures. No hematuria, no hematochezia. Pain is controlled with pain medications. PHYSICAL EXAMINATION: VITAL SIGNS: Temperature 98.6 , pulse 84, respiratory rate 20, blood pressure 147/95, pulse oximetry 99. HEENT: Head normocephalic, atraumatic. Eyes PERRLA. Extraocular muscles intact. Conjunctivae clear. Nose patent. Mucous membrane moist. NECK: Supple. No carotid bruit. No JVD or thyromegaly. CHEST: Bilaterally symmetrical. HEART: S1 and S2 positive. LUNGS: Clear to auscultation. ABDOMEN: Soft. Bowel sounds are positive. No organomegaly. EXTREMITIES: No edema. No cyanosis. Shoulders, range of motion is decreased. NEUROLOGICAL: Awake and alert. Obeying simple orders, oriented x3. MEDICATIONS: Tylenol, Pepcid, Dilaudid, sodium chloride, Keppra, Lidoderm, Ativan, Percocet. LABORATORY DATA: White blood cells 6.7, hemoglobin 10.6, hematocrit 32.1, platelets 139. Sodium 140, potassium 3.5, BUN 4, creatinine 0.7, glucose 87. ASSESSMENT AND PLAN: Mr. Romeo Crawford is a 22-year-old male with anemia, hypokalemia; came with seizures, two episodes, one unwitnessed happened at store, second witnessed happened in ED, tonic-clonic in nature, poor sleep hygiene, shoulder pain bilaterally after seizure, CK level elevated. CT scan of the head reviewed by me. There is a small focus of hypodensity within the superior right frontal white matter. The patient is started on Keppra 500 mg b.i.d., MRA of the head is negative. Given Ativan. Consult on sleep hygiene and balanced meal diet. No driving at least for 90 days as per neurologist. Keppra at least for 1 to 2 months. Need follow up EEG Neurology for clearance of driving. Comminuted fracture, proximal left humerus with avulsion of the greater tuberosity. Shoulder pain bilaterally. Tylenol p.r.n. Orthopedist, Dr. Moncada, is on the case. Gastrointestinal and deep venous thrombosis prophylaxis. Seen by Dr. Salguero for sleep problem. D-dimer is probably high because of the broken humeral bleeding. Status post urinary tract infection. Discussion done with the patient and the patient's mother. All questions answered. Sleep apnea syndrome. Sequential compression devices to the lower extremity. Gastric prophylaxis. We will call Cardiology consult also to rule out arrhythmia. We will follow. Lynsey Davidson MD [facility]TD[facility]
[2017-09-09] MEDS: Oxycodone/Acetaminophen 5/325 mg Tab PO PRN (04:45)
[2017-09-09 06:03] VITALS: O2SAT 100
[2017-09-09 08:11] LABS: HEMOGLOBIN 10.2 g/dL (14.0-18.0); MEAN CELL VOLUME 88.4 fl (80.0-105.0); MEAN CORPUSCULAR HGB CONC 32.8 g/dl (31.0-37.0); MEAN PLATELET VOLUME 9.7 fl (7.0-11.0); RBC 3.52 10^6/uL (3.5-6.1); RED CELL DISTRIBUTION WIDTH 12.7 % (11.5-14.5); WHITE BLOOD COUNT 7.1 10^3/ul (4.5-11.0)
[2017-09-09 08:40] LABS: ALB/GLOB RATIO 1.3 (1.1-1.8); ALT/SGPT 39 U/L (7-56); AST/SGOT 156 U/L (17-59); BLOOD UREA NITROGEN 4 mg/dL (7-21); CALCIUM 9.3 mg/dL (8.4-10.5); GFR AFRICAN-AMERICAN > 60; GFR NON-AFRICAN AMERICAN > 60
[2017-09-09] MEDS ORDERED: Potassium Chloride 20 mEq ER Tab PO SCH (10:00)
[2017-09-09] MEDS: Lidocaine 5% Patch TD SCH (10:53)
[2017-09-09] MEDS: levETIRAcetam 500mg IVPB 500 MG/100 ML BAG IVPB SCH (10:54)
[2017-09-09 12:22] VITALS: BP 147/90; PULSE 78; RESP 16; TEMP 99
--- NOTE | 2017-09-09 20:29 | PN ---
DATE: PULMONARY PROGRESS NOTE REFERRING PHYSICIAN: Dr. Davidson. SUBJECTIVE: He is sitting on side of the bed, has left arm in a sling. Night was unremarkable. Mother is at bedside. No new seizure reported. No nausea. No vomiting. No diarrhea. No leg pain or leg swelling. OBJECTIVE: GENERAL: In no acute distress. VITAL SIGNS: Temperature is 98, heart rate is 84, respiratory rate is 18, blood pressure 158/93, pulse ox 98% on room air. HEENT: Moist mucous membrane. Crowded airway. NECK: Supple. No JVD. LUNGS: Have a fair airflow with few rhonchi. HEART: S1 and S2. ABDOMEN: Soft, nontender. No organomegaly. EXTREMITIES: There is no edema. NEUROLOGIC: Awake and alert. Follows simple command. MEDICATIONS: He is on Ativan 1 mg q. 4 hours p.r.n., potassium 20 mEq daily, Keppra 500 mg twice a day, Lidoderm patch to the affected area, Pepcid 40 mg daily, Percocet 5/325 mg one tablet q. 6 hours p.r.n., IV fluid normal saline 100 mL/hour, Tylenol on p.r.n. basis. LABORATORY DATA: Shows hemoglobin 10.2, hematocrit 31.1, WBC 7.1, platelet is 148. INR is 1.21. PTT is 32. Sodium 142, potassium 3.8, chloride 105, bicarbonate is 27, BUN 4, creatinine 0.7, glucose is 88, calcium is 9.3. AST 156, ALT 39, alk phos is 54. Albumin is 4.0. TSH is 3.34. Microbiology: Urine culture has enterococcus faecalis sensitive to ampicillin, but urinalysis is unremarkable. IMPRESSION AND PLAN: New onset of seizure, status post fall with left humeral fracture, urinary tract infection,he may have sleep apnea syndrome, anemia. Medically stable. Could be discharged home. Outpatient surgery for left humeral fracture. May place him on Augmentin for a few days for urinary tract infection, follow up anemia workup as outpatient. May need to consider sleep study as outpatient. Thank you and we will follow with you. eGrman Salguero MD [facility] # [id number]
--- NOTE | 2017-09-10 02:19 | CON ---
DATE: CARDIOLOGY CONSULTATION REASON FOR CONSULTATION: Syncope versus seizures. HISTORY OF PRESENT ILLNESS: The patient is a 22-year-old male, who collapsed in front of a store locally in [place] close to the hospital, and bystanders called EMS. The patient denies any urinary incontinence or tongue-biting, but he bit his lip. The patient sustained a comminuted fracture in the proximal left humerus including the neck of the humerus, with avulsion of greater tuberosity, large hematoma affecting multiple muscle groups, axilla and left chest wall. According to emergency room note, the CECILY Todd witnessed that patient had tonic-clonic seizures. SOCIAL HISTORY: The patient is a nonsmoker and nondrinker. MEDICATIONS: Ativan 1 mg intravenously q. 4 hours p.r.n., K-Dur 20 mEq daily, Keppra 500 mg intravenously q. 12 hours, Pepcid 20 mg once a day, Percocet one tablet q. 6 hours, normal saline 100 mL an hour. PHYSICAL EXAMINATION GENERAL: The patient is a young male, who does not appear to be in acute distress. VITAL SIGNS: Blood pressure 147/90, heart rate 78, temperature 99, and respirations 16. HEENT: No icterus. NECK: No JVD. The patient has a sling applied to the left arm. CHEST: Clear. HEART: S1 and S2, regular. ABDOMEN: Soft. EXTREMITIES: Bilateral knee bruising. LABORATORY DATA: Hemoglobin and hematocrit 10.1 and 31.1, with drop of about 2.5 g of hemoglobin since admission. SMA-7 is within normal limits, except for a BUN and creatinine of 4 and 0.7 respectively. Lipid profile is within normal limits. D-dimer is elevated at 4215. Chest CT scan with PE protocol , no acute PE; artifacts limit evaluation for pulmonary embolus within the proximal lobar or segmental branches. Brain MRI, unremarkable pre- and post-contrast enhanced brain MRI. EKG revealed normal sinus rhythm at a rate of 84. ASSESSMENT: 1. Seizure disorder. 2. Comminuted fracture of the proximal left humerus including the neck of the humerus with avulsion of the greater tuberosity. Large hematoma affecting multiple muscle groups, axilla, and the chest wall. RECOMMENDATIONS: Continue current IV Keppra, as the patient is not a suitable candidate for anticoagulation at this time, obtain an echocardiographic study. Deyvi Espinosa MD
--- NOTE | 2017-09-10 05:59 | CON ---
DATE: 09/09/2017 LOCATION: Patient was seen early this morning in room 374, bed 1. The patient's mother was sitting next to him. CHIEF COMPLAINT: Weakness of several days. HISTORY OF PRESENT ILLNESS: This is a 22-year-old male who was admitted with seizures. The patient's urine culture has grown Enterococcus faecalis. Infectious Diseases consultation was requested. He has a low count, 10,000 colonies. Patient states he has no dysuria, no frequency, no fevers, no chills, no nausea. He has been having headaches on and off now for over a year according to his mother. He has seen multiple doctors, has had multiple MRIs. PAST MEDICAL HISTORY: Noncontributory for chronic headaches. PAST SURGICAL HISTORY: Noncontributory. ALLERGIES: PATIENT HAS NO KNOWN ALLERGIES. MEDICATIONS: Reviewed. PHYSICAL EXAMINATION: GENERAL: Patient is in bed, awake and alert, answering questions appropriately. Mother is sitting at the bedside. VITAL SIGNS: Patient has a temperature of 98, blood pressure is 120/70, respiratory rate is 16. HEENT: Examination of HEENT is unremarkable. NECK: Supple. LUNGS: Have decreased breath sounds. HEART: Normal S1 and S2. ABDOMEN: Soft, nontender. LABORATORY DATA: Reveals the patient's white count is 5.6, hemoglobin of 13, platelets of 198. Chemistries are reviewed. AST is 156. Toxicology is reviewed. Influenza is negative. Microbiology reveals Enterococcus. ASSESSMENT AND PLAN: Urinary tract infection and patient with new onset of seizures. Infectious Disease recommendation is not to treat the urinary tract infection. Recommend human immunodeficiency virus testing. Unable to get any detailed sexual history because of presence of his mother. Recommend followup with human immunodeficiency virus testing because of his age, and safe sex practices education. No antibiotics are indicated from Infectious Diseases point of view. Hernandez Mary MD
--- NOTE | 2017-09-12 09:47 | EEG ---
DATE: CONDITION OF THE RECORDING: Drowsy. DIAGNOSIS: Syncope. MEDICATIONS: Reviewed by nurse's reconciliation sheet. INTERPRETATION: This is a 16-channel [employer] recording. The background activity of this tracing was composed of 8 cycles per second. There was increased amount of beta activity of 16 to 20 cycles per second seen in this recording. There was small amount of theta activity of 5 to 7 cycles per second seen in this tracing. Drowsiness was characterized by mixed beta and theta activities. Sleep was characterized by vertex transient waves, sleep spindles and bilateral slowing. Photic stimulation showed no changes in tracing. No paroxysmal activity was noted in this recording. CONCLUSION: This is a normal drowsy EEG. No evidence of any epileptiform activity. Please clinically correlate. Chaz Gomez MD
== END 2017-09-09 16:20 | disposition left against medical advice (07) | DRG 101 ==
LOC: ED 21:35 → ERH 09-07 01:46 → 3RSO 09-07 03:30 → OBSVTOIN 09-07 21:08
PROVIDERS: ADMIT Internal Medicine; ATTEND Internal Medicine
PROC: 3E0234Z Introduction of Serum, Toxoid and Vaccine into Muscle, Percutaneous Approach (ICD-10-PCS; principal; 2017-09-06)
DX: G40.89 Other seizures (principal); S42.252A Displaced fracture of greater tuberosity of left humerus, initial encounter for closed fracture; D64.9 Anemia, unspecified; E87.6 Hypokalemia; F17.210 Nicotine dependence, cigarettes, uncomplicated; S01.551A Open bite of lip, initial encounter; N39.0 Urinary tract infection, site not specified; G47.00 Insomnia, unspecified; G47.30 Sleep apnea, unspecified; R79.1 Abnormal coagulation profile; Z72.820 Sleep deprivation; Z23 Encounter for immunization

== ENCOUNTER 2018-04-14 18:17 | Emergency (ER) | payer OTHER ==
[2018-04-14 18:22] VITALS: BMI 19.9
[2018-04-14] MEDS ORDERED: levETIRAcetam 1,000 MG in Sodium Chloride 0.9% 100 ML IV ONE (18:35)
[2018-04-14] MEDS ORDERED: Propofol 10 mg/ml Inj (20 ML) IVP ONE ×2 (18:36→20:02)
[2018-04-14 18:47] LABS: BASO # 0.02 K/mm3 (0.0-2.0); BASO % 0.3 % (0.0-3.0); EOS # 0.2 (0.0-0.7); EOS % 3.2 % (1.5-5.0); GRAN # 2.04 (1.4-6.5); HEMOGLOBIN 14.9 g/dL (14.0-18.0); LYMPH # 3.6 (1.2-3.4); LYMPH % 57.7 % (22.0-35.0); MEAN CORPUSCULAR HEMOGLOBIN 29.7 pg (25.0-35.0); MEAN CORPUSCULAR HGB CONC 33.4 g/dl (31.0-37.0); MEAN PLATELET VOLUME 9.3 fl (7.0-11.0); MONO # 0.4 (0.1-0.6); MONO % 5.8 % (1.0-6.0); RBC 5.01 10^6/uL (3.5-6.1); RED CELL DISTRIBUTION WIDTH 12.8 % (11.5-14.5); WHITE BLOOD COUNT 6.2 10^3/ul (4.5-11.0)
[2018-04-14 18:56] LABS: ALB/GLOB RATIO 1.4 (1.1-1.8); ALBUMIN 5.1 g/dL (3.0-4.8); ALT/SGPT 35 U/L (7-56); AST/SGOT 79 U/L (17-59); BLOOD UREA NITROGEN 9 mg/dL (7-21); CALCIUM 9.4 mg/dL (8.4-10.5); GFR NON-AFRICAN AMERICAN > 60
[2018-04-14 19:00] LABS: DILANTIN (PHENYTOIN) < 3 ug/mL (10-20)
[2018-04-14 19:02] LABS: VALPROIC ACID < 10 ug/mL (50.0-100.0)
--- NOTE | 2018-04-14 19:08 | ED PDOC ---
Arrival/HPI - General Chief Complaint: Seizure Time Seen by Provider: 04/14/18 18:31 Historian: Patient - History of Present Illness Narrative History of Present Illness (Text): 04/14/18 18:32 22 year old male, with recent diagnosis of seizure disorder, presents by EMS with shoulder injury status post, seizure. Patient has recently been seen for similar complaint, secondary to a similar incidence, and was put on Dilantin. Patient was found at home by his father in the bathtub with general tonic- clonic movements. Patient denies any postictal paralysis, head ache, buccal or lingual trauma. Patient also denies any fecal or urinary incontinence. Patient does complain of right shoulder pain and endorses spotty compliance on medication. Patient believed the last seizure was "a one time thing", and hasn' t taken Dilantin in a couple of days. Patient reports usual state of health for the past 2 weeks. Time/Duration: Prior to Arrival Past Medical History - Provider Review Nursing Documentation Reviewed: Yes - Past History Past History: No Previous - Infectious Disease Hx of Infectious Diseases: None - Cardiac Hx Cardiac Disorders: No - Pulmonary Hx Respiratory Disorders: No - Neurological Hx Seizures: Yes - HEENT Hx HEENT Disorder: No - Endocrine/Metabolic Hx Endocrine Disorders: No - Hematological/Oncological Hx Blood Disorders: No - Integumentary Hx Dermatological Disorder: No - Musculoskeletal/Rheumatological Hx Musculoskeletal Disorders: No Hx Falls: Yes - Gastrointestinal Hx Gastrointestinal Disorders: No - Genitourinary/Gynecological Hx Genitourinary Disorders: No - Psychiatric Hx Psychophysiologic Disorder: No Hx Substance Use: No - Past Surgical History Past Surgical History: No Previous - Anesthesia Hx Anesthesia: No Family/Social History - Physician Review Nursing Documentation Reviewed: Yes Family/Social History: No Known Family HX Smoking Status: Never Smoked Hx Alcohol Use: No Hx Substance Use: No Allergies/Home Meds Allergies/Adverse Reactions: Allergies No Known Allergies Allergy (Verified 04/14/18 18:25) Home Medications: Home Meds Medication Instructions Recorded Confirmed No Known Home Med 12/22/12 09/06/17 Review of Systems - Physician Review All systems were reviewed & negative as marked: Yes - Review of Systems Constitutional: Normal Eyes: Normal ENT: Normal. absent: Other (Buccal or Lingual Trauma) Respiratory: Normal Cardiovascular: Normal Gastrointestinal: Normal Genitourinary Male: Normal. absent: Other (Fecal or urinary incontinence) Musculoskeletal: Normal Skin: Normal Neurological: Seizure. absent: Headache Endocrine: Normal Hemo/Lymphatic: Normal Psychiatric: Normal Physical Exam Vital Signs Reviewed: Yes Vital Signs Pulse Resp BP Pulse Ox 04/14/18 18:22 100 H 18 169/87 H 99 Temperature: Afebrile Blood Pressure: Hypertensive Pulse: Tachycardic Respiratory Rate: Normal Appearance: Positive for: Well-Appearing, Non-Toxic, Comfortable Pain Distress: None Mental Status: Positive for: Alert and Oriented X 3 - Systems Exam Head: Present: Atraumatic, Normocephalic Pupils: Present: PERRL Extroacular Muscles: Present: EOMI Conjunctiva: Present: Normal Mouth: Present: Moist Mucous Membranes Neck: Present: Normal Range of Motion Respiratory/Chest: Present: Clear to Auscultation, Good Air Exchange. No: Respiratory Distress, Accessory Muscle Use Cardiovascular: Present: Regular Rate and Rhythm, Normal S1, S2. No: Murmurs Abdomen: No: Tenderness, Distention, Peritoneal Signs Back: Present: Normal Inspection Upper Extremity: Present: Normal Inspection, Neurovascularly Intact, Other ( right glenoid fossa vicuity; unable to touch contralateral shoulder). No: Cyanosis, Edema Lower Extremity: Present: Normal Inspection. No: Edema Neurological: Present: GCS=15, CN II-XII Intact, Speech Normal, Other (denies any axillary nerve territory deficits) Skin: Present: Warm, Dry, Normal Color. No: Rashes Psychiatric: Present: Alert, Oriented x 3, Normal Insight, Normal Concentration Medical Decision Making ED Course and Treatment: 22 y/o male p/w witnessed seizure and right shoulder dislocation. risk stratify w/ labs ivf shoulder xray conscious sedation w/ ketofol serial neurovascular checks check dilantin level load accordingly to deficit 04/14/18 20:03 Procedure note : s/p educated and informed consent was obtained Pt was placed on end todal capnometry pulse oximetry/library monitor w/ ivf running wide open . After 140 mg propofol and 70 mg ketamine pt was sufficiently seated to allow a painless sedation using the rt UE shoulder flexion/axial traction/ external rotation. 3 mins s/p reduction pt was following commands/ maintaining airway/ able to answer query regarding his name and whereabouts although he remained slightly sedated and dissociated. r/u/m/axillary sensory nerve was intact , as well 5/5 rue elbow flexion extension/PIN/AIN motor nerve function . pt was signed out at the end of my shift to Dr. Kelley to f/u dilantin levels and continued neurovascular checks and appropiate disposition. - Lab Interpretations Lab Results: 04/14/18 18:37 04/14/18 18:37 Lab Results 04/14/18 18:37: Alcohol, Quantitative < 10 04/14/18 18:37: Phenytoin < 3 L, Valproic Acid < 10 L, Carbamazepine Pending 04/14/18 18:37: Sodium 141, Potassium 4.1, Chloride 102, Carbon Dioxide 25, Anion Gap 18, BUN 9, Creatinine 0.9, Est GFR ( Amer) > 60, Est GFR (Non- Af Amer) > 60, Random Glucose 133 H, Calcium 9.4, Magnesium 2.2, Total Bilirubin 0.5, AST 79 H D, ALT 35, Alkaline Phosphatase 84, Total Protein 8.7 H , Albumin 5.1 H, Globulin 3.6, Albumin/Globulin Ratio 1.4 04/14/18 18:37: WBC 6.2, RBC 5.01, Hgb 14.9 D, Hct 44.6, MCV 89.0, MCH 29.7, MCHC 33.4, RDW 12.8, Plt Count 253, MPV 9.3, Gran % 33.0 L, Lymph % (Auto) 57.7 H, [place] % (Auto) 5.8, Eos % (Auto) 3.2, Baso % (Auto) 0.3, Gran # 2.04, Lymph # (Auto) 3.6 H, [place] # (Auto) 0.4, Eos # (Auto) 0.2, Baso # (Auto) 0.02 - RAD Interpretation Radiology Orders: 04/14/18 18:33 SHOULDER RIGHT [RAD] Stat 04/14/18 20:01 SHOULDER RIGHT ONE VIEW (OR) [RAD] Stat - Medication Orders Current Medication Orders: Ketamine HCl (Ketalar) 70 mg IV STAT STA Stop: 04/14/18 20:03 Propofol (Diprivan) 130 mg IVP ONCE ONE Stop: 04/14/18 20:03 - Scribe Statement The provider has reviewed the documentation as recorded by the Scribe Doe Haque All medical record entries made by the Scribe were at my direction and personally dictated by me. I have reviewed the chart and agree that the record accurately reflects my personal performance of the history, physical exam, medical decision making, and the department course for this patient. I have also personally directed, reviewed, and agree with the discharge instructions and disposition. Disposition/Present on Arrival - Present on Arrival Any Indicators Present on Arrival: No History of DVT/PE: No History of Uncontrolled Diabetes: No Urinary Catheter: No History of Decub. Ulcer: No History Surgical Site Infection Following: None - Disposition Have Diagnosis and Disposition been Completed?: Yes Diagnosis: Seizure, Dislocation of right shoulder joint Disposition Time: 20:15 Patient Plan: Observation Condition: IMPROVED Discharge Instructions (ExitCare): Shoulder Dislocation (DC), Seizures, Adult ( DC) Print Language: SOMALI Forms: [employer] ([place])
[2018-04-14] MEDS ORDERED: Ketamine 10 mg/ml Inj (20 ml) ONE (19:48)
[2018-04-14] MEDS ORDERED: Ketamine 50 mg/ml Inj (10 ml) IV STA (20:02)
[2018-04-14] MEDS ORDERED: Fosphenytoin 1,000 MG in Sodium Chloride 0.9% 50 ML IV STA (20:17)
[2018-04-14 20:21] VITALS: TEMP 98.5; O2SAT 100
[2018-04-14 20:25] VITALS: PULSE 78; RESP 18
[2018-04-14 20:30] LABS: CARBAMAZEPINE < 3 ug/mL (4.0-10.0)
--- NOTE | 2018-04-14 21:15 | ED PDOC ---
Physical Exam Vital Signs Reviewed: Yes Vital Signs Temp Pulse Resp BP Pulse Ox 04/14/18 20:21 78 18 147/96 H 100 04/14/18 19:37 98.5 F 88 19 158/84 H 100 04/14/18 18:22 100 H 18 169/87 H 99 Temperature: Afebrile Blood Pressure: Hypertensive Pulse: Tachycardic Respiratory Rate: Normal Appearance: Positive for: Well-Appearing, Non-Toxic, Comfortable Pain Distress: None Mental Status: Positive for: Alert and Oriented X 3 Medical Decision Making ED Course and Treatment: 04/14/18 21:14: Case endorsed to me by Dr. Chavez. Patient presents to the emergency department for further evaluation s/p seizure. Patient pending reassessment, and disposition. - Lab Interpretations Lab Results: 04/14/18 18:37 04/14/18 18:37 Lab Results 04/14/18 21:37: Urine Color Colorless, Urine Appearance Clear, Urine pH 7.5, Ur Specific Sims 1.015, Urine Protein Negative, Urine Glucose (UA) Negative, Urine Ketones Negative, Urine Blood Negative, Urine Nitrate Negative, Urine Bilirubin Negative, Urine Urobilinogen 0.2, Ur Leukocyte Esterase Negative 04/14/18 18:37: Alcohol, Quantitative < 10 04/14/18 18:37: Phenytoin < 3 L, Valproic Acid < 10 L, Carbamazepine < 3 L 04/14/18 18:37: Sodium 141, Potassium 4.1, Chloride 102, Carbon Dioxide 25, Anion Gap 18, BUN 9, Creatinine 0.9, Est GFR ( Amer) > 60, Est GFR (Non- Af Amer) > 60, Random Glucose 133 H, Calcium 9.4, Magnesium 2.2, Total Bilirubin 0.5, AST 79 H D, ALT 35, Alkaline Phosphatase 84, Total Protein 8.7 H , Albumin 5.1 H, Globulin 3.6, Albumin/Globulin Ratio 1.4 04/14/18 18:37: WBC 6.2, RBC 5.01, Hgb 14.9 D, Hct 44.6, MCV 89.0, MCH 29.7, MCHC 33.4, RDW 12.8, Plt Count 253, MPV 9.3, Gran % 33.0 L, Lymph % (Auto) 57.7 H, [place] % (Auto) 5.8, Eos % (Auto) 3.2, Baso % (Auto) 0.3, Gran # 2.04, Lymph # (Auto) 3.6 H, [place] # (Auto) 0.4, Eos # (Auto) 0.2, Baso # (Auto) 0.02 - RAD Interpretation Radiology Orders: 04/14/18 18:33 SHOULDER RIGHT [RAD] Stat 04/14/18 20:01 SHOULDER RIGHT ONE VIEW (OR) [RAD] Stat - Medication Orders Current Medication Orders: Discontinued Medications Fosphenytoin Sodium 1,000 mg/ (Sodium Chloride) 70 mls @ 100 mls/hr IV STAT STA Stop: 04/14/18 20:58 Last Admin: 04/14/18 20:45 Dose: 100 mls/hr eMAR Start Stop Document 04/14/18 20:45 RD (Rec: 04/14/18 20:56 RD [id number]) Intravenous Solution Start Date 04/14/18 Start Time 20:45 End Date 04/14/18 End time 21:15 Total Infusion Time 30 Ketamine HCl (Ketalar) 70 mg IV STAT STA Stop: 04/14/18 20:03 Last Admin: 04/14/18 20:28 Dose: Propofol (Diprivan) 130 mg IVP ONCE ONE Stop: 04/14/18 20:03 Last Admin: 04/14/18 19:37 Dose: 130 mg Comments: Administered by Dr. Chavez IVP Administration Document 04/14/18 19:37 RD (Rec: 04/14/18 20:26 RD [id number]) Charges for Administration # of IVP Administrations 1 - Scribe Statement The provider has reviewed the documentation as recorded by the Tyree Pedro Provider Scribe Attestation: All medical record entries made by the Scribe were at my direction and personally dictated by me. I have reviewed the chart and agree that the record accurately reflects my personal performance of the history, physical exam, medical decision making, and the department course for this patient. I have also personally directed, reviewed, and agree with the discharge instructions and disposition. Disposition/Present on Arrival - Present on Arrival Any Indicators Present on Arrival: No History of DVT/PE: No History of Uncontrolled Diabetes: No Urinary Catheter: No History of Decub. Ulcer: No History Surgical Site Infection Following: None - Disposition Have Diagnosis and Disposition been Completed?: Yes Diagnosis: Seizure, Dislocation of right shoulder joint Disposition: HOME/ ROUTINE Disposition Time: 21:45 Condition: IMPROVED Discharge Instructions (ExitCare): Seizures, Adult (DC), Shoulder Dislocation ( DC) Print Language: SRI LANKAN Prescriptions: Phenytoin, Extended [Dilantin Kapseals] 100 mg PO TID #90 cer Referrals: Shankar Kwan MD [Staff Provider] - Follow up with primary Refugio Rich MD [Staff Provider] - Follow up with primary Forms: [employer] (Azeri)
[2018-04-14 21:41] LABS: PH,URINE 7.5 (4.7-8.0); URINE BILIRUBIN NEGATIVE (NEGATIVE); URINE BLOOD NEGATIVE (NEGATIVE); URINE GLUCOSE (UA) NEGATIVE (NEGATIVE); URINE LEUKOCYTE ESTERASE NEGATIVE Leu/uL (NEGATIVE); URINE PROTEIN NEGATIVE mg/dL (<30 mg/dL); URINE UROBILINOGEN 0.2 E.U./dL (<1 E.U./dL)
[2018-04-14 21:42] LABS: URINE APPEARANCE CLEAR (CLEAR); URINE COLOR COLORLESS (YELLOW)
[2018-04-14 21:53] VITALS: BP 147/78
--- NOTE | 2018-04-15 10:14 | RAD ---
Date of service: 04/14/2018 PROCEDURE: Radiographs of the Right Shoulder HISTORY: suspected dislocation COMPARISON: No prior. FINDINGS: BONES: Normal. No fracture. JOINTS: There is an anterior inferior dislocation of the right glenohumeral joint SOFT TISSUES: Normal. OTHER FINDINGS: None. IMPRESSION: There is an anterior inferior dislocation of the right glenohumeral joint
--- NOTE | 2018-04-15 10:18 | RAD ---
Date of service: 04/14/2018 PROCEDURE: Radiographs of the Right Shoulder HISTORY: Post Reduction COMPARISON: 04/14/2018 FINDINGS: BONES: Normal. No fracture. JOINTS: Normal. Glenohumeral and acromioclavicular joints preserved. No osteoarthritis. SOFT TISSUES: Normal. OTHER FINDINGS: None. IMPRESSION: Successful reduction.
--- NOTE | 2018-04-15 12:12 | CARD ---
APPROVED REPORT Date of service: 04/14/2018 EKG Measurement Heart [id number] <Conclusion> Normal sinus rhythm Normal ECG
== END 2018-04-14 21:43 | disposition home or self-care (01) ==
LOC: ED 18:17
DX: S43.014A Anterior dislocation of right humerus, initial encounter (principal); X58.XXXA Exposure to other specified factors, initial encounter; Y92.002 Bathroom of unspecified non-institutional (private) residence as the place of occurrence of the external cause; R56.9 Unspecified convulsions
CPT/HCPCS: 23655; 73020; 73030; 80053; 80156; 80164; 80184; 80185; 80320; 81003; 83735; 85025; 93005; 96374; 99284; J2704; Q2009

== ENCOUNTER 2018-09-18 12:35 | Outpatient (CLI) | payer OTHER | END 2018-09-18 12:36 | disposition home or self-care (01) | LOC: LAB 12:35 ==

== ENCOUNTER 2018-11-28 04:15 | Emergency (ER) | payer OTHER ==
[2018-11-28 04:25] VITALS: BMI 21.5
[2018-11-28 04:27] VITALS: RESP 18
[2018-11-28 04:34] VITALS: PULSE 85
--- NOTE | 2018-11-28 04:34 | ED PDOC ---
Arrival/HPI - General Historian: Patient - History of Present Illness Narrative History of Present Illness (Text): 11/28/18 04:30 Patient is a 23yo M with PMH seizures presenting to ED with R shoulder pain. He reports dull achy pain that began less than an hour ago. He reports possibly having a seizure at that time but cannot recall. He denies tongue biting, urinary incontinence, or shaking. As per EMS, patient was with friends and fell into krishna. Patient denies fever, chills, chest pain, dizziness, abdominal pain, shortness of breath, nausea, vomiting. <Sundar Grubbs - Last Filed: 11/28/18 06:25> <Kojo Akhtar - Last Filed: 11/28/18 23:12> - General Chief Complaint: Upper Extremity Problem/Injury Time Seen by Provider: 11/28/18 04:17 Past Medical History - Past History Past History: No Previous - Infectious Disease Hx of Infectious Diseases: None - Cardiac Hx Cardiac Disorders: No - Pulmonary Hx Respiratory Disorders: No - Neurological Hx Seizures: Yes - HEENT Hx HEENT Disorder: No - Endocrine/Metabolic Hx Endocrine Disorders: No - Hematological/Oncological Hx Blood Disorders: No - Integumentary Hx Dermatological Disorder: No - Musculoskeletal/Rheumatological Hx Musculoskeletal Disorders: No Hx Falls: Yes - Gastrointestinal Hx Gastrointestinal Disorders: No - Genitourinary/Gynecological Hx Genitourinary Disorders: No - Psychiatric Hx Psychophysiologic Disorder: No Hx Substance Use: No - Past Surgical History Past Surgical History: No Previous - Anesthesia Hx Anesthesia: No <Sundar Grubbs - Last Filed: 11/28/18 06:25> Family/Social History Family/Social History: No Known Family HX Smoking Status: Never Smoked Hx Alcohol Use: No Hx Substance Use: No <Sundar Grubbs - Last Filed: 11/28/18 06:25> Allergies/Home Meds <Sundar Grubbs - Last Filed: 11/28/18 06:25> <Kojo Akhtar - Last Filed: 11/28/18 23:12> Allergies/Adverse Reactions: Allergies Penicillins Allergy (Verified 11/28/18 04:26) RASH Review of Systems - Review of Systems Constitutional: Normal Eyes: Normal ENT: Normal Respiratory: Normal Cardiovascular: Normal Gastrointestinal: Normal Genitourinary Male: Normal Musculoskeletal: Arthralgias Skin: Normal Neurological: Normal Endocrine: Normal Hemo/Lymphatic: Normal Psychiatric: Normal <Sundar Grubbs - Last Filed: 11/28/18 06:25> Physical Exam Vital Signs Reviewed: Yes Vital Signs Temp Pulse Resp BP Pulse Ox 11/28/18 04:26 97.8 F 100 H 18 147/87 98 Temperature: Afebrile Blood Pressure: Normal Pulse: Tachycardic Respiratory Rate: Normal Appearance: Positive for: Well-Appearing, Non-Toxic, Comfortable Pain Distress: None Mental Status: Positive for: Alert and Oriented X 3 - Systems Exam Head: Present: Atraumatic, Normocephalic Pupils: Present: PERRL Extroacular Muscles: Present: EOMI Conjunctiva: Present: Normal Mouth: Present: Moist Mucous Membranes Neck: Present: Normal Range of Motion Respiratory/Chest: Present: Clear to Auscultation, Good Air Exchange. No: Respiratory Distress, Accessory Muscle Use Cardiovascular: Present: Regular Rate and Rhythm, Normal S1, S2. No: Murmurs Abdomen: Present: Normal Bowel Sounds. No: Tenderness, Distention, Peritoneal Signs Upper Extremity: Present: Normal Inspection, Tenderness (tenderness to palpation of R shoulder). No: Cyanosis, Edema, Normal ROM Lower Extremity: Present: Cyanosis. No: Edema Neurological: Present: GCS=15, CN II-XII Intact, Speech Normal, Motor Func Grossly Intact Skin: Present: Normal Color. No: Warm, Dry, Rashes Psychiatric: Present: Alert, Oriented x 3, Normal Concentration <Sundar Grubbs - Last Filed: 11/28/18 06:25> Vital Signs Temp Pulse Resp BP Pulse Ox 11/28/18 04:26 97.8 F 85 18 147/87 98 <Kojo Akhtar - Last Filed: 11/28/18 23:12> Medical Decision Making ED Course and Treatment: 11/28/18 04:37 Syncope - Xray R shoulder - Ct head - CBC, CMP - UA, UDS 11/28/18 05:52 CT head without acute intracranial findings Xray R shoulder showing dislocation Conscious sedation and reduction <Sundar Grubbs - Last Filed: 11/28/18 06:25> ED Course and Treatment: Impression: Pt seen and evaluated with bacteriologist medical. Aware and agree with HPI, clinical findings, plan, and management. Pt, whose past medical history includes seizures, presented for right shoulder pain s/p possible seizure 1 hour prior to arrival. Plan: -- CT Head w/o contrast -- Chest X-ray -- XR Right Shoulder -- Labs, cardiac enzymes, troponin -- Urinalysis, urine drug screen -- Reassess and disposition 11/28/18 06:01 Procedural sedation with Ketamine for right shoulder dislocation reduction. PROCEDURE: REDUCTION Performed by the emergency provider Consent: Informed consent, after discussion of the risks, benefits, and alt ernatives to the procedure, was obtained. Timeout: A timeout to verify the correct patient, procedure, and site was performed immediately prior to the procedure. Indication: right shoulder dislocation Location: Right Shoulder Sedation: Ketamine. See MAR for details. Pre-procedure neurovascular status: Distal neurovascular status intact. Technique: Counter traction. Post-procedure neurovascular status: Distal neurovascular status remains intact. Confirmation: Post-reduction films confirm reduction. See post-procedure X-Ray interpretation. Post-procedure: Patient tolerated the procedure well with no immediate complications. The reduction site was immobilized with a shoulder immobilizer. 11/28/18 06:13 Leaving Against Medical Advice (AMA): The patient is choosing to leave against medical advice. I have personally explained to the patient that choosing to do so may result in permanent bodily harm, disability, or . I have discussed at great length that without further evaluation and monitoring there may be unforeseen circumstances and/or deterioration causing permanent bodily harm or as a result of their choice. The patient is alert, oriented, and shows the mental capacity to make clear decisions regarding the patients health care at this time. The patient continues to wish to leave against medical advice. In light of the patients decision to leave against medical advice, patient is aware of the importance to following up as instructed. The patient has been advised that they should return to the emergency room immediately if they change their mind at any time, or if their condition begins to change or worsen in any way. - RAD Interpretation Radiology Orders: 11/28/18 04:32 HEAD W/O CONTRAST [CT] Stat SHOULDER RIGHT [RAD] Stat 11/28/18 04:37 CHEST PORTABLE [RAD] Stat <Kojo Akhtar - Last Filed: 11/28/18 23:12> ED Procedural Sedation - Post-Procedure Post Procedure Note: Patient tolerated procedure, arousable and answer questions and follows commands. <Sundar Grubbs - Last Filed: 11/28/18 06:25> - Pre Anesthesia Assessment Last Known Meal: 5 hours prior to arrival Past Medical History: Medications Reviewed, Allergies Reviewed, Record Review Previous Surgies: Reviewed Family History/Social History: Reviewed - Physical Exam/Review of Systems Vital Signs Reviewed: Yes Cardiovascular: Regular Rate and Rhythm, Normal S1, S2, Peripheal Pulses Present Respiratory/Chest: Clear to Auscultation, Good Air Exchange Neurological: GCS=15, CN II-XII Intact, Speech Normal, Motor Func Grossly Intact, Normal Sensory Function, Normal Cerebellar Funct Abdomen: Normal Bowel Sounds Mental Status: Alert and Oriented X 3 - Pre-Procedure Airway Assessment History of difficult intubation or surgical airway (i.e trach):: No Inability to extend neck:: No Mouth opening less than two finger breadth:: No Diagnosis of sleep apnea:: No Less than three finger breadth to hyoid bone:: No ASA Criteria: 1 - Healthy, normal. 2 - Mild systemic disease (No functional limitations, mildline obesity, DM withot complications, Hypertention). 3 - Severe systemic disease (Some functional limitation, stable angina, morbid obesity, controlled COPD/Asthma/CHF). 4 - Sever systemic disease constant threat to life (Unstable angina, active symptoms of COPD/Asthma, CHF/Hypertension. 5 - Moribund ASA Clarification: ASA I Mallampati (airway): Class I - Intra-Procedure (Medications) Medications Given: Discontinued Medications Ketamine HCl (Ketalar) 50 mg IV STAT STA Stop: 11/28/18 05:47 Physician Pushed Medication: Yes <Kojo Akhtar - Last Filed: 11/28/18 23:12> - Pre Anesthesia Assessment Chief Complaint: Upper Extremity Problem/Injury - PA / NEON TECHNICIAN / Resident Statement / has reviewed & agrees with the documentation as recorded. FRANNY has examined the patient and agrees with the treatment plan. <Kojo Akhtar - Last Filed: 11/28/18 23:12> Disposition/Present on Arrival - Present on Arrival Any Indicators Present on Arrival: No History of DVT/PE: No History of Uncontrolled Diabetes: No Urinary Catheter: No History Surgical Site Infection Following: None - Disposition Have Diagnosis and Disposition been Completed?: Yes Disposition Time: 06:28 <Sundar Grubbs - Last Filed: 11/28/18 06:25> <Kojo Akhtar - Last Filed: 11/28/18 23:12> - Disposition Diagnosis: Seizure, Syncope, Shoulder dislocation Disposition: AGAINST MEDICAL ADVICE Condition: STABLE Discharge Instructions (ExitCare): Seizures, Adult (DC), Shoulder Dislocation (DC), Syncope (ED) Additional Instructions: Please follow up with Dr. Salas within 2 days. Please follow up with orthopedics within 2 days. If symptoms worsen, return to the emergency department. Referrals: Portillo Salas MD [Primary Care Provider] - Follow up with primary Turner Serrano DO [Staff Provider] - Follow up with primary Forms: [employer] (Khmer), WORK NOTE
[2018-11-28 05:45] LABS: BASO # 0.03 K/mm3 (0.0-2.0); BASO % 0.5 % (0.0-3.0); EOS # 0.4 (0.0-0.7); HEMOGLOBIN 13.4 g/dL (14.0-18.0); LYMPH # 3.4 (1.2-3.4); LYMPH % 57.6 % (22.0-35.0); MEAN CELL VOLUME 88.4 fl (80.0-105.0); MEAN CORPUSCULAR HEMOGLOBIN 28.9 pg (25.0-35.0); MEAN CORPUSCULAR HGB CONC 32.7 g/dl (31.0-37.0); MONO # 0.5 (0.1-0.6); MONO % 7.7 % (1.0-6.0); RBC 4.64 10^6/uL (3.5-6.1); RED CELL DISTRIBUTION WIDTH 12.9 % (11.5-14.5)
[2018-11-28] MEDS ORDERED: Ketamine 50 mg/ml Inj (10 ml) IV STA (05:46)
[2018-11-28 05:54] LABS: ALB/GLOB RATIO 1.3 (1.1-1.8); ALBUMIN 4.9 g/dL (3.0-4.8); ALT/SGPT 12 U/L (7-56); AST/SGOT 55 U/L (17-59); BLOOD UREA NITROGEN 13 mg/dL (7-21); CALCIUM 9.6 mg/dL (8.4-10.5); GFR NON-AFRICAN AMERICAN > 60
[2018-11-28 06:11] LABS: TROPONIN I < 0.01 ng/mL
[2018-11-28 06:22] VITALS: BP 165/95; TEMP 97.6; O2SAT 100
[2018-11-28 06:41] LABS: CK-MB 4.1 ng/mL (0.0-3.6)
--- NOTE | 2018-11-28 09:44 | CT ---
Date of service: 11/28/2018 PROCEDURE: CT HEAD WITHOUT CONTRAST. HISTORY: syncope COMPARISON: None available. TECHNIQUE: Axial computed tomography images were obtained through the head/brain without intravenous contrast. Radiation dose: Total exam DLP = 884.57 mGy-cm. This CT exam was performed using one or more of the following dose reduction techniques: Automated exposure control, adjustment of the mA and/or kV according to patient size, and/or use of iterative reconstruction technique. FINDINGS: HEMORRHAGE: No intracranial hemorrhage. BRAIN: No mass effect or edema. No atrophy or chronic microvascular ischemic changes. VENTRICLES: Unremarkable. No hydrocephalus. CALVARIUM: Unremarkable. PARANASAL SINUSES: Unremarkable as visualized. No significant inflammatory changes. MASTOID AIR CELLS: Unremarkable as visualized. No inflammatory changes. OTHER FINDINGS: The report concurs with the preliminary [facility] report IMPRESSION: Normal CT of the Head.
--- NOTE | 2018-11-28 10:29 | RAD ---
Date of service: 11/28/2018 PROCEDURE: CHEST RADIOGRAPH, 1 VIEW HISTORY: syncope COMPARISON: None available. FINDINGS: LUNGS: Clear. PLEURA: No pneumothorax or pleural fluid seen. CARDIOVASCULAR: No aortic atherosclerotic calcification present. Normal. OSSEOUS STRUCTURES: No significant abnormalities. VISUALIZED UPPER ABDOMEN: Normal. OTHER FINDINGS: None. IMPRESSION: No active disease.
--- NOTE | 2018-11-28 11:38 | RAD ---
Date of service: 11/28/2018 PROCEDURE: Radiographs of the Right Shoulder HISTORY: pain, syncope COMPARISON: No prior. TECHNIQUE: 3 views obtained. FINDINGS: BONES: No visible fracture. JOINTS: Anterior inferior dislocation of the right humeral head relative to the glenoid. SOFT TISSUES: Normal. OTHER FINDINGS: None. IMPRESSION: Anterior inferior dislocation right humeral head without fracture.
--- NOTE | 2018-11-28 11:39 | RAD ---
Date of service: 11/28/2018 PROCEDURE: Radiographs of the Right Shoulder HISTORY: s/p reduction of dislocation COMPARISON: Pre reduction study performed 05:38. November 28, 2018. TECHNIQUE: 3 views obtained. FINDINGS: BONES: No visible fracture. JOINTS: Anatomic alignment of the humeral head relative to the glenoid on this single AP portable view. SOFT TISSUES: Normal. OTHER FINDINGS: None. IMPRESSION: Successful reduction right shoulder dislocation. Anatomic glenohumeral relationship.
== END 2018-11-28 06:58 | disposition left against medical advice (07) ==
LOC: ED 04:15
DX: S43.004A Unspecified dislocation of right shoulder joint, initial encounter (principal); W19.XXXA Unspecified fall, initial encounter; R56.9 Unspecified convulsions; R55 Syncope and collapse